=== PATIENT | female | born 1975 | race Caucasian/White ===

== ENCOUNTER → 2020-01-20 09:13 | Outpatient (BNVA) | payer OTHER, SELFPAY | PROVIDERS: PCP Family Medicine; Referring Provider Family Medicine; Visit Provider Physician Assistant | DX: Z76.89 Persons encountering health services in other specified circumstances (principal) ==

== ENCOUNTER 2020-02-08 14:38 | Outpatient (REF) | payer OTHER, SELFPAY ==
[2020-02-08 15:27] LABS: MANUAL DIFF FLAG NO
[2020-02-08 15:30] LABS: Basophils Percent Auto 0.3 % (0-2); Eosinophils Absolute Auto 0.2 X10*3/uL (0.0-0.4); Eosinophils Percent Auto 1.5 % (0-4); Hemoglobin 12.6 g/dl (12.0-16.0); Imm Gran Abs Auto 0.06 X10*3/uL (0.00-0.03); Imm Gran Pct Auto 0.4 % (0.0-0.4); Lymphocytes Absolute Auto 2.2 X10*3/uL (1.2-4.9); Lymphocytes Percent Auto 15.3 % (20-40); Mean Corpuscular HGB Conc 33.2 g/dl (31.0-35.0); Mean Corpuscular Hemoglobin 29.9 pg (27.0-33.0); Mean Corpuscular Volume 90.3 fL (80-98); Mean Platelet Volume 9.8 fL (9.4-12.3); Monocytes Absolute Auto 0.5 X10*3/uL (0.1-1.2); Monocytes Percent Auto 3.2 % (2-11); Neutrophils Absolute Auto 11.2 X10*3/uL (2.0-8.3); Neutrophils Percent Auto 79.3 % (45-73); Platelet Count 322 X10*3/uL (160-400); Red Blood Count 4.21 X10*6/uL (4.20-5.50); Red Cell Distribution Width 13.3 % (11.0-16.0); White Blood Count 14.1 X10*3/uL (4.8-10.8)
[2020-02-08 15:38] LABS: Estimated Average Glucose 103 mg/dL; Hemoglobin A1c % 5.2 %
[2020-02-08 16:01] LABS: C Reactive Protein 1.09 mg/dL (< or = 0.50); Cholesterol 194 mg/dL; HDL Cholesterol 52 mg/dL; LDL Cholesterol Calculated 127 mg/dl; Triglycerides 79 mg/dL
[2020-02-08 16:24] LABS: Ferritin 15 ng/mL (10-250); TSH reflex Free T4 0.53 mIU/mL (0.32-4.0); Vitamin D 25-OH Total 23.5 ng/mL (>30)
[2020-02-08 16:34] LABS: Folate 8.5 ng/mL (> or = 4.0); Vitamin B12 579 pg/mL (200-900)
[2020-02-10 20:32] LABS: Calcium (PTHI) 8.8 mg/dL (8.6-10.2); PTHI 48 pg/mL (14-64)
[2020-02-12 13:07] LABS: Vitamin B1 14 nmol/L (8-30)
[2020-02-14 13:42] LABS: Vitamin A 38 mcg/dL (38-98)
== END 2020-02-08 14:39 | disposition home or self-care (01) ==
LOC: HO.LAB 14:38
PROVIDERS: PCP Family Medicine; Visit Provider Physician Assistant
DX: E66.3 Overweight (principal)
CPT/HCPCS: 36415; 80061; 82306; 82607; 82728; 82746; 83036; 83519; 83970; 84425; 84443; 84590; 85025; 86140

== ENCOUNTER 2020-02-09 10:19 | Outpatient (REF) | payer OTHER, SELFPAY | END 2020-02-09 10:20 | disposition home or self-care (01) | LOC: HO.LAB 10:19 | PROVIDERS: PCP Family Medicine; Visit Provider Physician Assistant | DX: E66.3 Overweight (principal); Z68.31 Body mass index [BMI] 31.0-31.9, adult | CPT/HCPCS: 83525 ==

== ENCOUNTER → 2020-03-17 08:45 | Outpatient (BNVA) | payer OTHER, SELFPAY | PROVIDERS: PCP Internal Medicine; Referring Provider Internal Medicine; Visit Provider Physician Assistant | DX: Z76.89 Persons encountering health services in other specified circumstances (principal) ==

== ENCOUNTER → 2020-03-28 08:15 | Outpatient (BNVA) | payer OTHER, SELFPAY | PROVIDERS: PCP Internal Medicine; Visit Provider Dietitian, Registered | DX: Z76.89 Persons encountering health services in other specified circumstances (principal) ==

== ENCOUNTER 2024-12-29 12:21 | Outpatient (AMB) | payer OTHER, SELFPAY ==
--- OUTSIDE RECORDS SUMMARY | 2024-12-27 08:45 | XMS_ITS | Encounter Summary ---
Author Organization [facility] Address [facility] [employer] [facility] [address] [place] [phone] Phone Care Team Providers Care Paper Winder Name Role Phone Fili Henson MD Unavailable Monty Caceres MD Unavailable Chuck Bustos PA-C Unavailable [phone] Bety Gandara ETHNOLOGY PROFESSOR Unavailable Yesenia Chamorro MD Primary Care Provider [phone] Reason for Visit * Occupational Therapy (Within 2 weeks) - Authorized Specialty Diagnoses / Procedures Referred By Nathen lord Referred To Contact Occupational Therapy Diagnoses Cubital tunnel release Lilli Ramirez PA-C [address] [place] [address] [facility], [place] [address] Phone: tel: fax: [email or web address] [address] [address] Phone: tel: Referral ID Status Reason Start Date Expiration Date V isits Requested Visits Authorized [id number] Authorized 2024 2025 24 24 Encounter Details Date Type Department Care Team (Latest Contact Info) Description 12/27/2024 8:45 AM EDT Office Visit [facility] [address] [place] [address] [phone] Lilli Ramirez PA-C 4 [facility] [place] [place] [address] DavidJen avila, OT 4 [place] [address] [email or web address] Cubital tunnel syndrome on left (Primary Dx) Social History Tobacco Use Types Packs/Day Years Used Date Smoking Tobacco: Never Smokeless Tobacco: Never Alcohol Use Standard Drinks/Week Comments Never 0 (1 standard drink = 0.6 oz pur e alcohol) Child or Family Care Answer Date Record ed Do you have problems with on e of the following making it difficult for you to work, study, or receive health care? No 06/01/2021 Education Answer Date Recorded Are you interested in more education? Not on gina e 06/06/2023 Are you concerned about learning? Not on file 06/06/2023 No 06/06/2023 No 06/06/2023 Food Answer Date Recorded Within the past 6 months we worried whether our food would run out before we got money to buy more. Sometimes True 022 Within the past 6 months the food we bought just didn't last and we didn't have enough money to get more. Never True 05/15 Residential Stability Answer Date Recor ded What is your housing situation today? I have christian sing 06/01/2021 How many times have you move d in the past 12 months? Zero (I did not move) 06/01/2021 Paying for Meds Answer Date Recorded Do you have trouble paying for medicines? No 06/01/2021 Paying Utility Bills Answer Date Record ed Do you have trouble paying your heating or elect ricity bill? No 06/01/2021 Transportation Answer Date Recorded Has the lack of transportati on kept you from medical appointments or from getting medications? No 06/01/2021 Unemployment Answer Date Recorded Are you currently unemployed or working on a part-time or temporary basis, and looking for work? No 06/01/2021 Digital Access Answer Date Recorded No 09/09/2022 No 09/09/2022 Reliable internet access at home? Not on file 09/09/2022 Device with a working camera? Not on file Intimate Partner Violence Answer Date R ecorded Are you denied basic needs s uch as food, clothing, or medical care? No 12/08/2024 In the past 12 months have y ou been in a relationship with a person who hurts, threatens, or tries to control you? No 12/08/2024 Are you denied basic needs s uch as food, clothing, or medical care? No 12/08/2024 In the past 12 months have y ou been in a relationship with a person who hurts, threatens, or tries to control you? No 12/08/2024 Comments No Sex and Gender Information Value Date Recorded Sex Assigned at Female 01/02/2018 4:18 PM EDT Legal Sex Female 2:26 PM EDT Gender Identity Female 01/02/2018 4:18 PM EDT Sexual Orientation Straight 05/13/2020 3: 46 PM EST Occupation Industry Job Start Date Job End Date [employer] Not on file Not on file Not on file Hairstylist on the side Not on file Not on file Not on file documented as of this encounter Progress Notes * Jen Summers, JUAN RAMON - 12/27/2024 8:45 AM EDT Occupational Therapy Treatment Note Patient Name: Yaritza Banda Date of : 1975 This patient has attended 2 visits since the onset of Occupational Therapy. Referring MD: Lilli Ramirez PA-C [address] [place] [address] [facility], [facility] [place] [address] Subjective comments: No numbness/tingling- trying to use my arm more Pain comments pre-treatment: 0/10 before tx Pt reports resolved numbness/tingling Objective Measures: WNL digit and wrist AROM Diagnosis: Cubital tunnel syndrome on left [G56.22] Date of Surgery: 12/08/24 Precautions: no heavy strength tasks/ activity as tolerated Interventions: See encounter report for minutes associated with each intervention. Pt was 15 min late and accommodated. MHP to left hand and elbow x 10 min 8 min US to left cubital tunnel at 0.8 w/cm2 x 3 Mhz cont STM to scar and jt mob to elbow and wrist HEP practice:tendon glides x 10 each hook, fist, straight fist [place] x 10 elbow flex/ext x 10- added 1# shoulder retraction x 5 digit abd/add x 10 Added: isometric thumb adduction x 10 Added: wrist flex/ext x 10 with 1# weight; sup/pro x 10 with 1# weight uln n glides x 5 Issued gel pad and explained wear/care. Instructed to massage scar. (Eval- reviewed) Home Exercise Program: Reviewed and updates Assessment: Joi is a pleasant 49 y/o female referred to OT with left cubital tunnel release. Pt presents 2 week5 days post op. Pt is independent with HEP. Incision is closed with small reddened area on distal end of incision. Pt pleased with relief in numbness/tingling and improved AROM. Plan: Progress strength/functional use Jen Summers OT [id number] Jen Summers OT [id number] documented in this encounter Plan of Treatment Upcoming Encounters Date Type Department Care Team (Late st Contact Info) Description 01/04/2025 1:00 PM EDT Office Visit [facility] [address] [place] [address] [phone] Lilli Ramirez PA-C [address] [place] [address] [facility] [place] [address] Jen Summers OT [address] [place] [phone] [email or web address] 01/07/2025 2:00 PM EDT Office Visit [address] [phone] Lilli Ramirez PA-C [address] [place] [address] [facility] [place] [phone] Nevaeh Romano, PT 4 [place] [address] 01/12/2025 10:45 AM EDT Office Visit [address] [address] Lilli Ramirez PA-C [address] [place] [address], [place] [address] Jen Summers, OT 4 [place] [address] [email or web address] 01/12/2025 11:45 AM EDT Office Visit [address] [address] Lilli Ramirez PA-C [address] [place] [address], [place] [address] Nevaeh Romano, PT 4 [place] [address] 01/19/2025 10:00 AM EDT Office Visit [address] [address] Lilli Ramirez PA-C [address] [place] [address], [place] [address] Jen Summers, OT 4 [place] [address] [email or web address] 01/19/2025 11:00 AM EDT Office Visit [address] [address] Lilli Ramirez PA-C [address] [place] [address], [place] Nevaeh Romano, PT 4 [place] [address] 01/26/2025 10:00 AM EDT Office Visit [address] [address] Lilli Ramirez PA-C [address] [place] [address] [facility] [place] [address] Jen Summers, OT [address] [place] [address] [email or web address] 01/26/2025 11:00 AM EDT Office Visit [address] [address] Lilli Ramirez PA-C [address] [place] [address], [place] [address] Madonna Rodriguez PTA 4 [place] [address] 02/02/2025 10:00 AM EDT Office Visit [address] [address] Lilli Ramirez PA-C [address] [place] [address] [facility] [place], [place] [phone] Jen Summers OT 4 [place] [address] [email or web address] 02/02/2025 11:00 AM EDT Office Visit [address] [phone] Lilli Ramirez PA-C [address] [place] [address] [facility], [place] [address] Madonna Rodriguez, NURSES EDUCATOR [address] [place] [address] 02/09/2025 10:15 AM EDT Office Visit [address] [address] Lilli Ramirez PA-C [address] [place] [address], [place] [address] Nevaeh Romano, PT 4 [place] [address] 02/16/2025 10:15 AM EST Office Visit [address] [address] Lilli Ramirez PA-C [address] [place] [address], [place] [address] Madonna Rodriguez, NURSES EDUCATOR [address] [place] [address] 02/23/2025 10:15 AM EST Office Visit [address] [phone] Lilli Ramirez PA-C [address] [place] [address], [place], [place] [phone] Nevaeh Romano, PT 4 [place] [address] documented as of this encounter Visit Diagnoses Diagnosis Cubital tunnel syndrome on left- Primary documented in this encounter Additional Health Concerns Assessment Noted Time PHQ-2 Depression Total Score: 1 06/01/19 22 10:38 AM EST documented as of this encounter Care Teams Paper Winder Relationship Specialty Start Date End Date Yesenia Chaomrro MD 15 [facility] [address] [place] [address] PCP - General Family Medicine 08/18/20 Fili Henson MD 22 [facility], [address] [place] [address] Historical LMR Provider 02/02/17 Motny Caceres MD [address] [place] [address] 202 [place] [address] Historical LMR Provider 02/02/17 Chuck Bustos PA-C 4 [facility], [facility] [place] [address] Historical LMR Provider 02/02/17 Bety Gandara FNP [address] [place] [address] Historical LMR Provider 02/02/17 documented as of this encounter Additional Source Comments The information contained in this document represents components of the legal health record. It is not the complete legal health record.[facility]
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
--- OUTSIDE RECORDS SUMMARY | 2024-12-29 15:48 | XMS_ITS | Encounter Summary ---
Author Organization [facility] Address [facility] [address] [place] [address] Phone Care Team Providers Care Stained Glass Painter Name Role Phone Fili Henson MD Unavailable Monty Caceres MD Unavailable Chuck Bustos PA-C Unavailable Bety Gandara Unavailable Yesenia Chamorro MD Primary Care Provider [phone] Encounter Details Date Type Department Care Team (Late st Contact Info) Description 07/23/2023 Procedure Pass OR Admitting Dept - Virtual Department [address] [place] [phone] Social History Tobacco Use Types Packs/Day Years [...] your housing situation today? I have christian hines 06/01/2021 How many times have you move [...] as food, clothing, or medical care? No 06/25/2023 In the past 12 months have y ou been in a relationship with a person who hurts, threatens, or tries to control you? No 06/25/2023 Are you denied basic needs s uch as food, clothing, or medical care? No 06/25/2023 In the past 12 months have y ou been in a relationship with a person who hurts, threatens, or tries to control you? No 06/25/2023 Comments No Sex and Gender Information Value [...] on file documented as of this encounter Plan of Treatment Upcoming Encounters Date Type Department Care Team (Late st Contact Info) Description 01/04/2025 1:00 PM EDT Office Visit [address] [phone] Lilli Ramirez PA-C [address] [place] [address], [place] [address] Jen Summers, OT 4 [place] [address] [email or web address] 01/07/2025 2:00 PM EDT Office Visit [address] [phone] Lilli Ramirez PA-C [address] [place] [address], [place] [address] Nevaeh Romano, PT 4 [place] [address] 01/12/2025 10:45 AM EDT Office Visit [address] [phone] Lilli Ramirez PA-C [address] [place] [address], [place], [place] [phone] Jen Summers, OT [address] [place] [address] [email or web address] 01/12/2025 11:45 AM EDT Office Visit [address] [phone] Lilli Ramirez PA-C [address] [place] [address], [place], [place] [phone] Nevaeh Romano, PT 4 [place] [address] 01/19/2025 10:00 AM EDT Office Visit [address] [address] Lilli Ramirez PA-C [address] [place] [address] [facility], [place] [address] Jen Summers, OT 4 [place] [address] [email or web address] 01/19/2025 11:00 AM EDT Office Visit [address] [address] Lilli Ramirez PA-C [address] [place] [address], [place] [address] Nevaeh Romano, PT 4 [place] [address] 01/26/2025 10:00 AM EDT Office Visit [address] [address] Lilli Ramirez PA-C [address] [place] [address], [place] [address] Jen Summers, OT 4 [place] [address] [email or web address] 01/26/2025 11:00 AM EDT Office Visit [address] [address] Lilli Ramirez PA-C [address] [place] [address], [place] [address] [email or web address] Navvinnyilia Madonna Mcconnell, PEER SUPPORT SPECIALIST [address] [place] [address] 02/02/2025 10:00 AM EDT Office Visit [address] [address] Lilli Ramirez PA-C [address] [place] [address] [facility] [place] [address] Jen Summers OT [address] [place] [address] [email or web address] 02/02/2025 11:00 AM EDT Office Visit [address] [address] Lilli Ramirez PA-C [address] [place], [place] [address]s [facility] [place], [place] [phone] Navvinnyilia Madonna Jayesh, PEER SUPPORT SPECIALIST [address] [place] [address] 02/09/2025 10:15 AM EDT Office Visit [address] [phone] Lilli Ramirez PA-C [address] [place], [place] [address] [place], [place] [phone] Nevaeh Romano, PT 4 [place], [place] [phone] 02/16/2025 10:15 AM EST Office Visit [address] [phone] Lilli Ramirez PA-C [address] [place] [address] [facility] [place], [place] [phone] MerissailiaMadonna, PEER SUPPORT SPECIALIST 4 [place] [address] 02/23/2025 10:15 AM EST Office Visit [facility] [address] [place] [address] [phone] Lilli Ramirez PA-C [address] [place] [address] [facility], [place], [place] [phone] Nevaeh Romano, PT 4 [place], [place] [phone] documented as of this encounter Visit Diagnoses Not on filedocumented in this encounter Additional Health Concerns Assessment Noted Time PHQ-2 Depression Total Score: 1 06/01/19 10:38 AM EST documented as of this encounter Care Teams Stained Glass Painter Relationship Specialty Start Date End Date Yesenia Chamorro MD [address] [place] [address] [address]. [address] [place] [address] PCP - General Family Medicine 08/18/20 Fili Henson MD 22 [facility] 102 [place] [address] Historical LMR Provider 02/02/17 Monty Caceres MD [address] [place] [address] 202 [place] [address] Historical LMR Provider 02/02/17 Chuck Bustos PA-C [facility] [place] [address] [email or web address] Historical LMR Provider 02/02/17 Bety Gandara FNP 10 [place] [address] [email or web address] Historical LMR Provider 02/02/17 documented as of this encounter Additional Source Comments The information contained in this document represents components of the legal health record. It is not the complete legal health record.[facility]
--- OUTSIDE RECORDS SUMMARY | 2024-12-29 15:48 | XMS_ITS | Encounter Summary ---
Author Organization [facility] Address [facility] [address] [place] [phone] Phone Care Team Providers Care Parish Nurse Name Role Phone Fili Henson MD Unavailable Motny Caceres MD Unavailable Chuck Bustos PA-C Unavailable Bety Gandara Unavailable Yesenia Chamorro MD Primary Care Provider Encounter Details Date Type Department Care Team (Late st Contact Info) Description 08/27/2023 Procedure Pass OR Admitting Dept - Virtual Department [address] [place] [id number] Social History Tobacco Use Types Packs/Day Years [...] Description 01/04/2025 1:00 PM EDT Office Visit [address] [id number] Lilli Ramirez PA-C [address] [place] [address], [place] [address] Jen Summers, OT [address] [place] [address] [email or web address] 01/07/2025 2:00 PM EDT Office Visit [address] [id number] Lilli Ramirez PA-C [address] [place] [address], [place] [address] Nevaeh Romano, PT [address] [place] [address] 01/12/2025 10:45 AM EDT Office Visit [address] [phone] Lilli Ramirez PA-C [address] [place] [address], [place], [place] [phone] Jen Summers, OT [address] [place] [address] [email or web address] 01/12/2025 11:45 AM EDT Office Visit [address] [phone] Lilli Ramirez PA-C [address] [place] [address], [place], [place] [phone] Nevaeh Romano, PT [address] [place] [address] 01/19/2025 10:00 AM EDT Office Visit [address] [address] Lilli Ramirez PA-C [address] [place] [address] [facility], [place] [address] Jen Summers, OT [address] [place] [address] [email or web address] 01/19/2025 11:00 AM EDT Office Visit [address] [address] Lilli Ramirez PA-C [address] [place] [address], [place] [address] Nevaeh Romano, PT [address] [place] [address] 01/26/2025 10:00 AM EDT Office Visit [address] [address] Lilli Ramirez PA-C [address] [place] [address], [place] [address] Jen Summers, OT [address] [place] [address] [email or web address] 01/26/2025 11:00 AM EDT Office Visit [address] [address] Lilli Ramirez PA-C [address] [place] [address], [place] [address] Navvinnyilia Madonna Mcconnell, MECHANIC ASSISTANT [address] [place] [address] 02/02/2025 10:00 AM EDT Office Visit [address] [address] Lilli Ramirez PA-C [address] [place] [address] [facility] [place] [address] Jen Summers OT [address] [place] [address] [email or web address] 02/02/2025 11:00 AM EDT Office Visit [address] [address] Lilli Ramirez PA-C [address] [place], [place] [address] [facility] [place], [place] [phone] Navvinnyilia Madonna Jayesh, MECHANIC ASSISTANT [address] [place] [address] 02/09/2025 10:15 AM EDT Office Visit [address] [phone] Lilli Ramirez PA-C [address] [place], [place] [address] [place], [place] [phone] Nevaeh Romano, PT [address], [place] [phone] 02/16/2025 10:15 AM EST Office Visit [address] [phone] Lilli Ramirez PA-C [address] [place] [address] [facility] [place] [place] [phone] MerissailiaMadonna, MECHANIC ASSISTANT [address] [place] [address] 02/23/2025 10:15 AM EST Office Visit [facility] [address] [place] [address] [phone] Lilli Ramirez PA-C [address] [place] [address] [facility], [place], [place] [phone] Nevaeh Romano, PT [address] [place], [place] [phone] documented as of this encounter Visit Diagnoses Not on filedocumented in this encounter Additional Health Concerns Assessment Noted Time PHQ-2 Depression Total Score: 1 06/01/19 10:38 AM EST documented as of this encounter Care Teams Parish Nurse Relationship Specialty Start Date End Date Yesenia Chamorro MD [address] [place] [address] [address] [place] [address] PCP - General Family Medicine 08/18/20 Fili Henson MD 22 [facility] [address] [place] [address] Historical LMR Provider 02/02/17 Monty Caceres MD [address] [place] [address] [address] [place] [address] Historical LMR Provider 02/02/17 Chuck Bustos PA-C [facility] [place] [address] [email or web address] Historical LMR Provider 02/02/17 Bety Gandara FNP [address] [place] [address] [email or web address] Historical LMR Provider 02/02/17 documented as of this encounter Additional Source Comments The information contained in this document represents components of the legal health record. It is not the complete legal health record.[facility]
--- OUTSIDE RECORDS SUMMARY | 2024-12-29 15:48 | XMS_ITS | Clinical Summary ---
Author Organization Located Within [facility] Address [facility] [employer] [facility] [address] [place] [phone] Phone Care Team Providers Care Home Office Representative Name Role Phone Fili Henson MD Unavailable Monty Caceres MD Unavailable Chuck Bustos PA-C Unavailable Bety Gandara [employer] Unavailable [phone] Yesenia Chamorro MD Primary Care Provider Allergies Active Allergy Reactions Criticality Noted Date Comments Rizatriptan Hives,Itching 06/27/2019 Guaifenesin Itching 05/19/2018 Penicillins Other (See Comments) 10/05/2016 Childhood allergy Childhood reaction Pseudoephedrine Hcl Hives,Other (See Comments) 03/03/2017 hallucinations And hallucinations Sulfa (Sulfonamide Antibiotics) Hives 03/17/2017 Sumatriptan Rash Low 03/03/2017 Taste disturbances Medications butalbital-acetami nophen-caffeine (FIORICET, ESGIC) 50-325-40 mg per tablet 03/22/20 17 Active clonazePAM (KLONOPIN) 1 MG tablet Take 1 mg by mouth nightly at bedtime as needed. 03/22/20 17 Active vilazodone (VIIBRYD) 40 mg Tab Take 40 mg by mouth daily. 02/21/20 17 Active ALPRAZolam (XANAX) 1 MG tablet Take 1 mg by mouth 2 (two) times a day as needed for anxiety. Also during prn Active dextroamphetamine- amphetamine (ADDERALL) 10 mg Tab tablet Take 30 mg by mouth daily. 01/02/20 21 Active ondansetron (ZOFRAN-ODT) 4 MG disintegrating tablet Take 1 tablet (4 mg total) by mouth every 8 (eight) hours as needed. 20 tablet 07/24/19 23 Active TYRVAYA 0.03 mg/spray sprm 07/03/19 23 Active buPROPion (WELLBUTRIN XL) 300 MG ER 24 hr tablet Take 300 mg by mouth daily. Active zolpidem (AMBIEN CR) 12.5 MG CR tablet Take 12.5 mg by mouth. Active lamoTRIgine (LAMICTAL) 25 MG IMMEDIATE release tablet 03/17/20 24 Active buPROPion (WELLBUTRIN XL) 150 MG ER 24 hr tablet 01/29/20 24 Active oxyCODONE 5 MG immediate release tablet Take 1-2 tablets (5-10 mg total) by mouth every 6 (six) hours as needed for pain (specific location in comments). Partial fill ok 10 tablet 12/09/19 25 025 Discontinu ed(No longer taking) fluconazole (DIFLUCAN) 150 MG tabletIndications: Acute vaginitis Take 1 tablet (150 mg total) by mouth once for 1 dose. Take second dose in 72 hours if symptoms persist. 2 tablet 12/15/19 25 025 Active Problems Problem Noted Date Diagnosed Date Left carpal tunnel syndrome 07/23/2023 De Quervain's tenosynovitis, left 07/23/2023 Right carpal tunnel syndrome 03/12/2023 Assessment & Plan (03/13/2023 10:45 AM EST): Positive Phalen's test, flick sign, and numbness/tingling of hand are c/w CTS. Use of cock-up splint either at work or during sleep (but not all day, to avoid muscle atrophy) is appropriate but pt reports no longer helpful so may be time to move on from using this. Finger deformity, right 03/12/2023 Assessment & Plan (03/13/2023 10:56 AM EST): Appears c/w OA and probably present for longer than pt has been aware but will check XR to r/o other pathology. Trigger ring finger of right hand 03/12/2023 Assessment & Plan (03/13/2023 11:00 AM EST): H&P c/w trigger finger. Discussed what this is, how it occurs and how it is treated. Pt amenable to injection today; if sx recur, can return for repeat injection or call for surgical referral. Risks, benefits and alternatives to trigger finger injection discussed with patient. Consent form signed and scanned into chart. Pt provided verbal consent for this procedure to be performed by student Diana Zuluaga. The skin was cleaned with Hibiclens and cooled with ethyl chloride spray. The right palm at the site of the tender nodule was injected with a mix of 0.25 cc 1% plain lidocaine and 10 mg kenalog (40 mg/mL). Patient tolerated the injection well. Left wrist pain 03/12/2023 Assessment & Plan (03/13/2023 10:55 AM EST): Pain, tenderness and swelling of L radial wrist and h/o repetitive supinating movements strongly suggestive of de Quervain's disease although not definitive given negative Erica's test. Pt aware of diagnostic uncertainty and opted to proceed with steroid injection anyway; OT will also be helpful. Risks, benefits and alternatives to wrist injection discussed with patient. Consent form signed and scanned into chart. The skin was cleaned with Hibiclens and cooled with ethyl chloride spray. The left radial wrist was injected superficially with a mix of 3 cc 1% plain lidocaine and 10 mg kenalog (40 mg/mL). Patient tolerated the injection well and may return as needed for repeat injection. Mastodynia 06/01/2021 Overweight 06/01/2021 Recurrent UTI 06/01/2021 Routine medical exam 06/01/2021 Assessment & Plan (06/01/2021 3:02 PM EST): 45 y.o. female here for complete physical exam. Mastalgia is not cyclic and she does not take any hormonal medications that might be held responsible. She has had normal breast imaging, including mammography and ultrasound, since the onset of her breast pain. She has not had any recent weight changes but admits that it has been a long time since she was properly fitted for a bra. We reviewed evidence that shows that up to 85% of patients with breast pain find relief from getting bras properly fitted and I recommend that she do so. We discussed additional treatment options for pain including vitamin E, evening primrose oil, diclofenac; she is interested in whenever would be most effective and I think the latter is probably her best bet. She will let me know if this is not effective. The remainder of her chronic medical conditions are stable and/or managed by other specialists. USPSTF A&B recommendations reviewed with pt. BP: WNL BMI: Body mass index is 29.26 kg/m ., recommend icnreasing fruits/veg consumption Pap smears for people age 21-65 with a cervix: s/p hysterectomy STI testing for teens and adults at risk, and at least one lifetime HIV and hep C test: Done previously and normal/negative per pt PrEP for persons at high risk of HIV: N/A plans in the next year: N/A no risk for Depression screen: in treatment IPV screen in women of reproductive age (or others PRN): Negative Smoking cessation counseling: N/A Alcohol use counseling: N/A LTBI screening in people at increased risk: Done previously and normal/negative BrCa screening in women/AFAB people at risk: 7-Question Family History Screening Tool and Any woman in the family with breast cancer before age 50 - discussed, will consider and let me know if she wants to get tested Vaccinations: TDaP today Last dental visit: up to date Lipid screening to consider statin for primary prevention for adults 40-75, or at younger ages with risk factors: WNL 2019, repeat @ 5 years This SmartLink has been updated to reference the ASCVD 2013 equation and not the 2018 equations. The 10-year ASCVD risk score (Justinanalisa YOUNG Jr., et al., 2013) is: 0.5% Values used to calculate the score: Age: 45 years Sex: Female Is Non- : No Diabetic: No Tobacco smoker: No Systolic Blood Pressure: 98 mmHg Is BP treated: No HDL Cholesterol: 37 mg/dL Total Cholesterol: 148 mg/dL Breast cancer risk reducing medication in people with breasts 35 and older at risk: N/A Glucose/diabetes screening for people 35 - 70 with BMI >25: nonfasting glucose WNL 2019 Breast cancer screening with biennial mammography for people with breasts 50 and older, and can consider for 40-49: WNL last fall Back pain, lumbosacral 03/26/2018 Assessment & Plan (03/26/2018 5:39 PM EST): Presenting with lumbosacral back pain with radiation into right gluteal muscles x 3 weeks. Worse with twisting. No incontinence, weakness, numbness or parasthesia. No saddle anesthesia. On exam pt has ttp over right QL and right SI joint and acute paraspinal muscle spasm of lumbar spine. 1. Will start with NSAIDs and muscle relaxants x 1-2 weeks. Discussed SE of medications. 2. Epsom salt baths PRN 3. F/u in 2 weeks for re-check - if not improved will schedule for possible OMT Pt understood. All questions and concerns were addressed. Allergic rhinitis due to pollen 12/29/2017 Chronic depression 12/29/2017 Assessment & Plan (10/07/2018 6:52 PM EDT): Continue psychiatric medications as prescribed. None of these medications are new. Chronic insomnia 12/29/2017 Chronic neck pain 12/29/2017 Eczema 12/29/2017 Migraine with aura and witho ut status migrainosus, not intractable 12/29/2017 Assessment & Plan (10/07/2018 7:20 PM EDT): Triptan can be ordered as needed, sumatriptan is on formulary here. Butalbital can also be ordered as needed. Currently minimal headache. She last had classic migraine 2 days ago. Attention deficit hyperactivity disorder (ADHD) Overview (06/01/2021): f/b associate professor of psychology Eliz. Delgadillo for her various concerns and Rx's Resolved Problems Problem Noted Date Diagnosed Date Resolved Date TIA (transient ischemic attack) 10/07/2018 06/01/2021 Assessment & Plan (10/07/2018 6:58 PM EDT): I suspect this represents complex migraine, with possible contribution from anesthesia. Currently no focal findings on neurologic exam. Head CT is unremarkable. Metabolic work-up is unremarkable, leukocytosis is likely reactive postoperatively and I do not see other evidence for infection. She remains afebrile and hemodynamically stable with some tachycardia, but appears slightly anxious. [facility] tel[place]urology consult appreciated. 1. Observation on telemetry 2. Neurologic checks every 4 hours 3. MRI of the brain, MRA of the brain and neck to be performed this evening to evaluate for ischemia or stenosis/thrombus 4. Further diagnostics based on MRI results 5. Check TSH, ESR, CRP, coags, lipids, and hemoglobin A1c 6. Patient has passed bedside swallow eval and will be allowed to have a regular diet Localized adiposity 06/10/2018 06/01/19 Assessment & Plan (10/07/2018 6:52 PM EDT): Per Dr. Caceres's recommendations: -Leave compression garments on for 48 hours. -use sequential compression devices on lower legs while in bed, avoid chemical anticoagulants. -Up out of bed, ambulate TID. -Oral percocet 1-2 q 4 hours for pain. OK to add ibuprofen after 48 hours. -serosanguinous drainage from the liposuctioned areas is normal and can be voluminous. Use chucks on bed. OK to change ABD pads. Blepharochalasis of upper an d lower eyelids of both eyes 06/10/2018 06/01/2021 Assessment & Plan (10/07/2018 6:51 PM EDT): Per Dr. Caceres's recommendations: -Keep iced saline gauze on eyes as much as possible, with head slightly elevated. Keep a bowl of ice at the bedside with a bottle of saline in it. Wet an ABD pad with the ice cold saline from the bottle and place over eyes. Patient can do this herself if needed. -Tobradex eye drops, one drop each eye TID for one week post op. Exercise-induced asthma 12/29/201705/15 Overview (06/01/2021): Resolved Hyperlipidemia 12/29/2017 06/01/2021 Encounters Date Type Department Care Team Description 12/27/2024 8:45 AM EDT Office Visit [facility] [address] [place] [phone] Lilli Ramirez PA-C Chutkowski, Idalina, OT Cubital tunnel syndrome on left (Primary Dx) 12/20/2024 8:00 AM EDT Office Visit [facility] [address] [place] [address] Lilli Ramirez PA-C Chutkowski, Idalina, OT Cubital tunnel syndrome on left (Primary Dx) 12/17/2024 11:20 AM EDT Office Visit [facility] [address] [place] [address] Lilli Ramirez PA-C S/P cubital tunnel release (Primary Dx) 12/14/2024 4:20 PM EDT Telemedicine [facility] [address] [place] [address] [place] [phone] Jeff Sandra MD Acute vaginitis (Primary Dx) 2024 8:20 AM EDT Office Visit [facility] [address] [place] [address] Lilli Ramirez PA-C S/P cubital tunnel release (Primary Dx) 12/08/2024 9:16 AM EDT - 12/08/2024 10:17 AM EDT Surgery OR Admitting Dept - Virtual Department [address] [place] [address] Sara Herndon MD LEFT RELEASE CUBITAL TUNNEL 12/08/2024 9:04 AM EDT Anesthesia Event OR Admitting Dept - Virtual Department [address] [place] [phone] Josemanuel Vega MD 12/08/2024 7:31 AM EDT - 12/08/2024 4:41 PM EDT Hospital Encounter OR Admitting Dept - Virtual Department [address] [place] [address] Sara Herndon MD Discharge Disposition: Home or Self Care 12/08/2024 Procedure Pass [facility] Scan - [facility] [address] [place] [phone] 12/08/2024 Procedure Pass OR Admitting Dept - Virtual Department [address] [place] [address] 12/07/2024 8:30 AM EDT Pre-Admission Testing Pre Procedure Evaluation [address] [place] [address] Sara Herndon MD 12/07/2024 Prep for Surgery [facility] [address] [place] [address] [phone] Sara Herndon MD 12/06/2024 11:00 AM EDT Office Visit [facility] [address] [place] [phone] Lilli Ramirez PA-C Chutkowski, Idalina, OT Cubital tunnel syndrome on left (Primary Dx) 12/02/2024 8:45 AM EDT Office Visit [facility] [address] [place] [phone] Sara Herndon MD Cubital tunnel syndrome on left (Primary Dx) 11/29/2024 9:00 AM EDT Office Visit [facility] [address] [place] [phone] Lilli Ramirez PA-C Losty, Nikki, OT Cubital tunnel syndrome on left (Primary Dx) 11/15/2024 9:30 AM EDT Office Visit [facility] [address] [place] [address] Lilli Ramirez PA-C Chutkowski, Idalina, OT Cubital tunnel syndrome on left (Primary Dx) 11/15/2024 Orders Only [facility] [address] [place] [phone] iLlli Ramirez PA-C 11/09/2024 12:30 PM EDT Procedure visit [facility] [address] [place] [address] Milagros Amador MD Cubital tunnel syndrome on left (Primary Dx) 11/08/2024 10:15 AM EDT Office Visit [facility] [address] [place] [address] 16774 Lilli Ramirez PA-C Chutkowski, Idalina, OT Cubital tunnel syndrome on left (Primary Dx) 10/28/2024 8:45 AM EDT Office Visit [facility] [address] [place] [address] Lilli Ramirez PA-C Chutkowski, Idalina, OT Cubital tunnel syndrome on left (Primary Dx) 10/22/2024 11:00 AM EDT Office Visit [address] [address] Lilli Ramirez PA-C Chutkowski, Idalina, OT Cubital tunnel syndrome on left (Primary Dx) 10/08/2024 Orders Only [facility] [address] [place] [address] Lilli Ramirez PA-C from Last 3 Months Immunizations Immunization Administration Dates Next Due COVID-19 (Pre-02/03) Pfizer Vaccine, mRNA, PF 01/24/2021,04/25/2020,04/04/2020 Hepatitis B Adult 12/16/2019,,12/16/2019,2019 Influenza Quadrivalent Prese rvative Free IM 02/04/2023,01/17/2022,01/11/2021,2019,12/16/2019,12/16/2019,12/16/2019 Influenza trivalent preserva tive free intradermal 02/01/2013 Influenza, Unspecified Formulation 05/11/2019 Td (adult) 5 Lf Tetanus Toxo id, PF, Adsorbed 08/21/2009 Tdap 06/01/2021 Family History Medical History Relation Comments No Known Problems Brother 1 No Known Problems Brother 2 Stroke Maternal Aunt Colon cancer Maternal Uncle in his 60s Coronary artery disease Mother KS 2017 Breast cancer Paternal Aunt <50 Breast cancer Unspecified MGGM Diabetes Unspecified both sides Relation Status Comments Brother 1 Alive Brother 2 Alive Maternal Aunt Alive Maternal Uncle Mother Alive Paternal Aunt Unspecified Social History Tobacco Use Types Packs/Day Years Used Date Smoking Tobacco: Never Smokeless Tobacco: Never Tobacco Cessation:Counseling Given: Not Answered Alcohol Use Standard Drinks/Week Comments Never 0 [...] file Not on file Not on file Last Filed Vital Signs Vital Sign Reading Time Taken Comments Blood Pressure 121/82 12/08/2024 4:19 PM EDT Pulse 90 12/08/2024 1:00 PM EDT Temperature 36.4 C (97.5 F) 12/08/2024 4:19 PM EDT Respiratory Rate 10 12/08/2024 1:00 PM EDT Oxygen Saturation 96% 12/08/2024 4:19 PM EDT Inhaled Oxygen Concentration - - Weight 69.9 kg (154 lb) 12/03/2024 10:56 AM EDT Height 162.6 cm (5' 4 ) 12/03/2024 10:56 AM EDT Body Mass Index 26.43 12/03/2024 10:56 AM EDT Plan of Treatment Upcoming Encounters Date Type Department Care Team (Late st Contact Info) Description 01/04/2025 1:00 PM EDT Office Visit [facility] [address] [place] [address] [phone] Lilli Ramirez PA-C [address] [place] [address] [facility] [place], [place] [phone] Jen Summers OT [address] [place], [place] [phone] [email or web address] 01/07/2025 2:00 PM EDT Office Visit [address] [phone] Lilli Ramirez PA-C [address] [place] [address] Sports [facility], [place] [address] Nevaeh Romano, PT [address] [place] [address] 01/12/2025 10:45 AM EDT Office Visit [address] [address] Lilli Ramirez PA-C [address] [place] [address], [place] [address] Jen Summers OT [address] [place] [address] [email or web address] 01/12/2025 11:45 AM EDT Office Visit [address] [phone] Lilli Ramirez PA-C [address] [place] [address], [place] [address] Nevaeh Romano, PT [address] [place] [address] 01/19/2025 10:00 AM EDT Office Visit [address] [address] Lilli Ramirez PA-C [address] [place] [address], [place] [address] Jen Summers, OT [address] [place] [address] [email or web address] 01/19/2025 11:00 AM EDT Office Visit [address] [address] Lilli Ramirez PA-C [address] [place], [place] [address]s Sports [facility], [place] [address] Nevaeh Romano, PT [address] [place] [address] 01/26/2025 10:00 AM EDT Office Visit [address] [phone] Lilli Ramirez PA-C [address] [place] [address] Sports [facility], [place] [address] Jen Summers, OT [address] [place] [address] [email or web address] 01/26/2025 11:00 AM EDT Office Visit [address] [address] Lilli Ramirez PA-C [address] [place] [address], [place] [address] Madonna Rodriguez PTA [address] [place] [address] 02/02/2025 10:00 AM EDT Office Visit [address] [phone] Lilli Ramirez PA-C [address] [place] [address], [place] [address] Jen Summers OT [address] [place] [address] [email or web address] 02/02/2025 11:00 AM EDT Office Visit [address] [address] Lilli Ramirez PA-C [address] [place] [address], [place] [address] Madonna Rodriguez PTA [address] [place] [address] 02/09/2025 10:15 AM EDT Office Visit [address] [address] Lilli Ramirez PA-C [address] [place] [address], [place] [address] Nevaeh Romano, PT [address] [place] [address] 02/16/2025 10:15 AM EST Office Visit [address] [address] Lilli Ramirez PA-C [address] [place] [address], [place], [place] [phone] Madonna Rodriguez PTA [address] [place] [address] 02/23/2025 10:15 AM EST Office Visit [address] [address] Lilli Ramirez PA-C 4 [facility], [facility] [place] [address] [email or web address] Nevaeh Romano, PT [address] [place] [address] [email or web address] Health Maintenance Due Date Last Done Comments HEPATITIS C SCREENING 1994 HIV ONE-TIME SCREENING (18-65 YEARS) 1994 COLOGUARD 2021 COLONOSCOPY 2021 COLORECTAL CANCER SCREENING 2021 FIT TEST 2021 FOBT 2021 SIGMOIDOSCOPY 2021 VIRTUAL COLONOSCOPY 2021 DEPRESSION SCREENING 06/01/2022 06/01/2021 MAMMOGRAM 02/01/2023 02/01/2021, 03/23/2018 LIPID PANEL 10/09/2023 10/08/2018 INFLUENZA VACCINE (#1) 2024 , 01/17/2022, 01/11/2021, Additional history exists COVID-19 VACCINE (2024- season) 2024 01/24/2021, 04/25/2020, 04/04/2020 SCREENING FOR DIABETES 12/09/2027 12/08/2024 Adult Td,Tdap Booster 06/01/2031 06/01/2021, 010 SMOKING STATUS SCREENING (Once After 26 Yrs) Completed 12/08/2024 HEPATITIS A VACCINES Aged Out No long er eligible based on patient's age to complete this topic HIB VACCINES Aged Out No longer eligi ble based on patient's age to complete this topic MENINGOCOCCAL VACCINES (ACWY) Aged Out No longer eligible based on patient's age to complete this topic MENINGOCOCCAL VACCINES (B) Aged Out N o longer eligible based on patient's age to complete this topic PNEUMOCOCCAL VACCINES (0-49 years) Aged Out No longer eligible based on patient's age to complete this topic Medical Devices Not on file Procedures Procedure Name Priority Date/Time Associated Diagnosis Comments CT HEAD (CODE STROKE) WITHOUT CONTRAST Routine 12/08/2024 11:07 AM EDT POCT GLUCOSE Routine 12/08/2024 10:49 AM EDT AIRWAY PLACEMENT Routine 12/08/2024 9:10 AM EDT ME REVISE ULNAR NERVE AT ELBOW 12/08/2024 9:03 AM EDT Cubital tunnel syndrome on left BI MAMMOGRAM DIAGNOSTIC WITH TOMOSYNTHESIS WITH CAD (BILATERAL) Routine 02/01/2021 1:07 PM EDT Breast pain, left LIPID PANEL Routine 10/08/2018 4:07 AM EDT from Last 3 Months or Most Recently Relevant to Health Maintenance Results * CT HEAD (CODE STROKE) WITHOUT CONTRAST (12/08/2024 11:07 AM EDT) MGB IMG BUILDING EQUIPMENT OPERATOR COMMENT no infarct [facility] Anatomical Region Laterality Modality Head Computed Tomogra phy 12/08/2024 11:0 7 AM EDT Impressions 12/08/2024 11:24 AM EDT No acute infarct or intracranial hemorrhage. A clinically significant result was initiated on 12/08/2024 11:24 AM, Message ID [id number]. Narrative 12/08/2024 11:[address] HEAD (CODE STROKE) WITHOUT CONTRAST Referring clinician's provided indication for this examination in Epic: * Neuro deficit, acute, stroke suspected TECHNIQUE: Multidetector-row CT of the head was performed without intravenous contrast using tailored dose modulation techniques. Images were reconstructed in the axial, coronal, and sagittal planes. COMPARISON: CT HEAD WITHOUT CONTRAST FINDINGS: Brain Parenchyma: There is no mass-effect, midline shift, or space-occupying lesion. There is no acute territorial infarct or intracranial hemorrhage. Ventricular System and Extra-Axial Spaces: The ventricles, sulci and cisterns are age-appropriate. There is no extra-axial fluid collection. Osseous and Extracranial Structures: There is no displaced calvarial fracture. The visualized paranasal sinuses are clear. The mastoid air cells are clear. The orbits and soft tissues are unremarkable. Procedure Note Francois Sawyer MD - 12/08/2024 CT HEAD (CODE STROKE) WITHOUT CONTRAST Referring clinician's provided indication for this examination in Epic: *Neuro deficit, acute, stroke suspected TECHNIQUE: Multidetector-row CT of the head was performed withoutintravenous contrast using tailored dose modulation techniques. Imageswere reconstructed in the axial, coronal, and sagittal planes. COMPARISON: CT HEAD WITHOUT CONTRAST FINDINGS: Brain Parenchyma: There is no mass-effect, midline shift, orspace-occupying lesion. There is no acute territorial infarct orintracranial hemorrhage. Ventricular System and Extra-Axial Spaces: The ventricles, sulci andcisterns are age-appropriate. There is no extra-axial fluid collection. Osseous and Extracranial Structures: There is no displaced calvarialfracture. The visualized paranasal sinuses are clear. The mastoid aircells are clear. The orbits and soft tissues are unremarkable. IMPRESSION: No acute infarct or intracranial hemorrhage. A clinically significant result was initiated on 12/08/2024 11:24 AM,Message ID [id number]. us Josemanuel Vega MD IM CT HEAD/NECK Final Resul t * POCT Glucose (12/08/2024 10:49 AM EDT) Glucose, POCT 92 70 - 100 mg/dL [facility] 12/08/2024 10:4 9 AM EDT 12/08/2024 10:52 AM EDT us Sara Herndon MD POINT OF CARE TEST ORDERABLES Final Result [facility] [address] [place] [address] * ANES ETT DOUBLE LUMEN - AIRWAY LDA (12/08/2024 9:10 AM EDT) Narrative Miguel Gomez CRNA - 12/08/2024 9:10 AM EDT Miguel Gomez CRNA 12/08/2024 9:15 AM Airway Placement Procedure Note: Procedure performed by: fellow/resident/INSTRUCTIONAL COACH Anesthesiologist: Josemanuel Vega MD Fellow/Resident/INSTRUCTIONAL COACH: Miguel Gomez CRNA Airway procedure initiated at:12/08/2024 9:10 AM and ended at. Personal Protective Equipment: Mask: surgical mask Gloves: gloves Mask Ventilation: Quality: not attempted Airway Placement: Technique: LMA LMA Insertion: LMA size: 3 LMA type: flexible LMA placement attempts: 1. Outcomes: Evidence of dental injury? no Complications observed? no Miguel Gomez CRNA ME ANESTHESIA Final Resu lt * BI MAMMOGRAM DIAGNOSTIC WITH TOMOSYNTHESIS WITH CAD (BILATERAL) (02/01/2021 1:07 PM EDT) Anatomical Region Laterality Modality Breast Left, Breast Right, Breast Bilateral Bila teral Mammography 02/01/2021 1:01 PM EDT Impressions 02/01/2021 1:56 PM EDT RIGHT BREAST: Negative, no evidence of malignancy. Normal interval follow-up is recommended in 12 months. LEFT BREAST: Negative, no evidence of malignancy. In particular, no mammographic or sonographic abnormality to accounts for patient's palpable concern. Clinical follow-up is recommended. Note that palpable concerns should be evaluated independent of imaging findings. Normal interval follow-up mammogram is recommended in 12 months. Bi-RADS: BI-RADS CATEGORY: 1 - Negative. DENSITY: The breast tissue is heterogeneously dense, which could obscure a lesion on mammography. RIGHT RECOMMENDATION DUE DATE: 12 Months Recommendation: Right Mammography Screening LEFT RECOMMENDATION DUE DATE: At This Time Recommendation: Left Clinical Follow Up Narrative 02/01/2021 1:56 PM EDT History: According to patient, left lump in the lateral breast, approximately 3 o'clock position. STUDIES: 1.Bilateral diagnostic mammography with tomosynthesis and CAD 2.Targeted ultrasound of the left breast TECHNIQUE: Bilateral full-field digital diagnostic mammography is obtained and read in conjunction with computer-aided detection. Tomosynthesis as well as 2-D C view imaging were obtained. COMPARISON: Comparison made to March 23, 2018 BREAST COMPOSITION: The breast tissue is heterogeneously dense, which may obscure small masses. RIGHT BREAST: No significant masses, suspicious calcifications or other abnormalities are seen. LEFT BREAST: No significant masses, suspicious calcifications or other abnormalities are seen. In particular, no discrete masses in the vicinity of the triangular skin marker placed at approximately 3 o'clock position at 1.0 cm from the nipple. Targeted ultrasound of the left breast was performed at location of the palpable concern at 3:00-4:00 positions at 1 cm from the nipple. No sonographic abnormality seen. Only normal breast tissue seen. Targeted ultrasound left breast was also performed at approximately 11 o'clock position 5 cm from the nipple erroneously, which also only showed normal breast tissue. us Bety Gandara [employer] ROBOTICIST IMG MG EXAMS Final Result * Lipid panel (10/08/2018 4:07 AM EDT) HDL 37 mg/dL [facility] Comment: Interpretation <40 mg/dL: Low HDL cholesterol (major risk factor for CHD) Greater than or equal to 60 mg/dL: High HDL cholesterol ( negative risk factor for CHD) HDL - cholesterol is affected by a number of factors, e.g. smoking, excerise, hormones, sex and age. CHOLESTEROL 148 0 - 240 mg/dL [facility] TRIGLYCERIDES 115 30 - 160 mg/dL [facility] LDL 88 50 - 129 mg/dL [facility] Comment: LDL levels in terms of risk for coronary heart disease: <100 mg/dL: Optimal 100-129 mg/dL: Near or above optimal 130-159 mg/dL: Borderline high 160-189 mg/dL: High >190 mg/dL: Very High CARDIAC RISK RATIO 4.0 3.3 - 4.4 C [facility] Blood 10/08/2018 4:07 AM EDT 10/08/2018 5:52 AM EDT us Rosas Benton MD LAB BLOOD ORDERABLES Fin al Result [address] [address] from Last 3 Months or Most Recently Relevant to Health Maintenance Insurance [facility] [place] [address] [address] [place] [address] [place] [address] [facility] Advance Directives For more information, please contact: [phone] (9AM - 5PM [facility], Friday-Friday) * Full Code (Presumed) (Latest Code Status on File) Date Activated Date Inactivated Comments 10/07/2018 7:52 PM 10/08/2018 2:41 PM * Full Code (Presumed) Date Activated Date Inactivated Comments 10/07/2018 6:14 AM 10/07/2018 5:44 PM Care Teams Home Office Representative Relationship Specialty Start Date End Date Yesenia Chamorro MD [address] [facility] [address] [place] [address] [email or web address] PCP - General Family Medicine 08/18/20 Fili Henson MD [address], [address] [place] [address] [email or web address] Historical LMR Provider 02/02/17 Monty Caceres MD [address] [place] [address], [address] [place] [address] [email or web address] Historical LMR Provider 02/02/17 Chuck Bustos PA-C [address] [place] [address] [facility], [facility] [place] [address] [email or web address] Historical LMR Provider 02/02/17 Bety Gandara FNP [address] [place] [address] [email or web address] Historical LMR Provider 02/02/17 Additional Source Comments The information contained in this document represents components of the legal health record. It is not the complete legal health record.Located Within [facility]
--- OUTSIDE RECORDS SUMMARY | 2024-12-29 15:50 | XMS_ITS | Encounter Summary ---
Author Organization [facility] Address [facility] [address] [place] [address] Phone Care Team Providers Care Beveler Name Role Phone Fili Henson MD Unavailable Monty Caceres MD Unavailable Chuck Bustos PA-C Unavailable [phone] Bety Gandara Unavailable Yesenia Chamorro MD Primary Care Provider [phone] Encounter Details Date Type Department Care Team (Late st Contact Info) Description 12/08/2024 Procedure Pass OR Admitting Dept - Virtual Department [address] [place] [id number] Social History Tobacco Use Types Packs/Day Years [...] Description 01/04/2025 1:00 PM EDT Office Visit [address] [id number] Lilli Ramirez PA-C [address] [place] [address], [place] [address] Jen Summers, OT [address] [place] [address] [email or web address] 01/07/2025 2:00 PM EDT Office Visit [address] [id number] Lilli Ramirez PA-C [address] [place] [address], [place] [address] Nevaeh Romano, PT 4 [place] [address] 01/12/2025 10:45 AM EDT Office Visit [address] [id number] Lilli Ramriez PA-C [address] [place] [address], [place], [place] [phone] Jen Summers, OT [address] [place] [address] [email or web address] 01/12/2025 11:45 AM EDT Office Visit [address] [id number] Lilli Ramirez PA-C [address] [place] [address], [place], [place] [phone] Nevaeh Romano, PT 4 [place] [address] 01/19/2025 10:00 AM EDT Office Visit [address] [address] Lilli Ramirez PA-C [address] [place] [address] Sports [facility], [place] [address] Jen Summres, OT 4 [place] [address] [email or web address] 01/19/2025 11:00 AM EDT Office Visit [address] [address] Lilli Ramirez PA-C [address] [place] [address], [place] [address] Nevaeh Romano, PT 4 [place] [address] 01/26/2025 10:00 AM EDT Office Visit [address] [address] Lilli Ramirez PA-C [address] [place] [address], [place] [address] Jen Summers, OT [address] [place] [address] [email or web address] 01/26/2025 11:00 AM EDT Office Visit [address] [address] Lilli Ramirez PA-C [address] [place] [address], [place] [address] Navvinnyilia Madonna Mcconnell, EXPERIMENTAL TECHNICIAN [address] [place] [address] 02/02/2025 10:00 AM EDT Office Visit [address] [address] Lilli Ramirez PA-C [address] [place] [address] [facility] [address] Jen Summers OT [address] [place] [address] [email or web address] 02/02/2025 11:00 AM EDT Office Visit [address] [address] Lilli Ramirez PA-C [address] [place], [place] [address]s [facility] [place], [place] [phone] Navvinnyilia Madonna Jayesh, EXPERIMENTAL TECHNICIAN [address] [place] [address] 02/09/2025 10:15 AM EDT Office Visit [address] [id number] Lilli Ramirez PA-C [address] [place], [place] [address] [place], [place] [phone] Nevaeh Romano, PT [address] [place], [place] [phone] 02/16/2025 10:15 AM EST Office Visit [address] [phone] Lilli Ramirez PA-C [address] [place] [address] [facility] [place], [place] [phone] MerissailiaMadonna, EXPERIMENTAL TECHNICIAN [address] [place] [address] 02/23/2025 10:15 AM EST Office Visit [facility] [address] [place] [address] [id number] Lilli Ramirez PA-C [address] [place] [address] [facility], [place], [place] [phone] Nevaeh Romano, PT [address] [place], [place] [id number] documented as of this encounter Visit Diagnoses Not on filedocumented in this encounter Additional Health Concerns Assessment Noted Time PHQ-2 Depression Total Score: 1 06/01/19 10:38 AM EST documented as of this encounter Care Teams Beveler Relationship Specialty Start Date End Date Yesenia Chamorro MD [address] [place] [address] [address] [place] [address] PCP - General Family Medicine 08/18/20 Fili Henson MD [address] [facility] [address] [place] [address] Historical LMR Provider 02/02/17 Monty Caceres MD [address] [place] [address] 202 [place] [address] Historical LMR Provider 02/02/17 Chuck Bustos PA-C [facility] [place] [address] [email or web address] Historical LMR Provider 02/02/17 Bety Gandara FNP [address] [place] [address] [email or web address] Historical LMR Provider 02/02/17 documented as of this encounter Additional Source Comments The information contained in this document represents components of the legal health record. It is not the complete legal health record.[facility]
--- OUTSIDE RECORDS SUMMARY | 2024-12-29 15:50 | XMS_ITS | Encounter Summary ---
Author Organization [facility] Address [facility] [address] [place] [address] Phone Care Team Providers Care Supervisor Plate Pasting Name Role Phone Leigha Vasquez ICT SYSTEMS TEST ENGINEER Unavailable Je Espinal MD Unavailable [phone] Fili Henson MD Unavailable Imani Delcid MD Unavailable Amirah Burns MD Unavailable [phone] Alexx Newsome ICT SYSTEMS TEST ENGINEER Unavailable Subhash Cantu MEDICAL CERTIFICATION SPECIALIST Unavailable Mony Duarte MD Unavailable Monty Caceres MD Unavailable Arline Brown ICT SYSTEMS TEST ENGINEER Unavailable [phone] Chuck Bustos PA-C Unavailable Miguel Torres MD Unavailable [phone] Jefe Perez MD Unavailable [phone] Bety Gandara NURSING STUDENT Unavailable Bautista Saleh MEDICAL CERTIFICATION SPECIALIST Unavailable Precious Rg DO Primary Care Provider [phone] Yesenia Chamorro MD Primary Care Provider Encounter Details Date Type Department Care Team (Late Contact Info) Description 10/07/2018 Procedure Pass [facility] - [address] [address] Social History Tobacco Use Types Packs/Day Years Used Date Smoking Tobacco: Never Smokeless Tobacco: Never Alcohol Use Standard Drinks/Week Comments Yes 0 (1 standard drink = 0.6 oz pur e alcohol) 2/month Comments No Sex and Gender Information Value Date Recorded Sex Assigned at Female 01/02/2018 4:18 PM EDT Legal Sex Female 2:26 PM EDT Gender Identity Female 01/02/2018 4:18 PM EDT Sexual Orientation Straight 05/13/2020 3: 46 PM EST 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 file Not on file documented as of this encounter Plan of Treatment Upcoming Encounters Date Type Department Care Team (Late Contact Info) Description 01/04/2025 1:00 PM EDT Office Visit [facility] [address] [place] [address] Lilli Ramirez PA-C [address] [place] [address] Orthopedics Sports [facility], [place] [address] Jen Summers OT [address] [place] [address] [email or web address] 01/07/2025 2:00 PM EDT Office Visit [address] [address] Lilli Ramirez PA-C [address] [place] [address] Sports Medicine, [place] [address] Nevaeh Romano PT 4 [place] [address] 01/12/2025 10:45 AM EDT Office Visit [address] [address] Lilli Ramirez PA-C [address] [place] [address], [place] [address] Jen Summers, OT 4 [place] [address] [email or web address] 01/12/2025 11:45 AM EDT Office Visit [address] [address] Lilli Ramirez PA-C [address] [place] [address], [place] [address] Nevaeh Romano, PT 4 [place] [address] 01/19/2025 10:00 AM EDT Office Visit [address] [address] Lilli Ramirez PA-C [address] [place] [address], [place] [address] Jen Summers, OT [address] [place] [address] [email or web address] 01/19/2025 11:00 AM EDT Office Visit [address] [address] Lilli Ramirez PA-C [address] [place] [address], [place] [address] Nevaeh Romano, PT 4 [place] [address] 01/26/2025 10:00 AM EDT Office Visit [address] [address] Lilli Ramirez PA-C [address] [place] [address], [place] [address] Jen Summers, OT [address] [place] [address] [email or web address] 01/26/2025 11:00 AM EDT Office Visit [address] [address] Lilli Ramirez PA-C [address] [place] [address], [place] [address] Madonna Rodriguez PTA 4 [place] [address] 02/02/2025 10:00 AM EDT Office Visit [address] [address] Lilil Ramirez PA-C [address] [place] [address], [place] [address] Jen Summers, OT [address] [place] [address] [email or web address] 02/02/2025 11:00 AM EDT Office Visit [address] [address] Lilli Ramirez PA-C [address] [place] [address], [place] [address] Michael Madonna Mcconnell, CASE SPECIALIST 4 [place] [address] 02/09/2025 10:15 AM EDT Office Visit [address] [address] Lilli Ramirez PA-C [address] [place] [address] Sports [facility], [place] [address] Nevaeh Romano, PT 4 [place] [address] 02/16/2025 10:15 AM EST Office Visit [address] [phone] Lilli Ramirez PA-C [address] [place] [address], [place] [address] NavvinnyiliaMadonna, CASE SPECIALIST [address] [place] [address] 02/23/2025 10:15 AM EST Office Visit [address] [phone] Lilli Ramirez PA-C [address] [place] [address], [place], [place] [phone] Nevaeh Romano, PT 4 [place], [place] [phone] documented as of this encounter Visit Diagnoses Not on filedocumented in this encounter Additional Health Concerns Infection Onset Date Last Indicated Resolved Time CoV-Exposed Comment:Recent close contact 02/15/2020 02/15/2020 02/29/2020 1:23 AM EST CoV-Exposed Comment:From COVIDPass 03/20/2021 03/20/2021 04/04/2021 1:23 A M EST CoV-Exposed Comment:Recent close contact documented in the COVID-19 PCR/PRO order 04/10/2021 04/10/2021 04/25/2021 1:[address] CoV-Risk 08/26/2021 09/05/2021 09/16/2021 1:21 AM EDT documented as of this encounter Care Teams Supervisor Plate Pasting Relationship Specialty Start Date End Date Precious Rg DO [address] [place] [address] [email or web address] PCP - General Family Medicine 03/26/18 08/17/20 Yesenia Chamorro MD 15 [facility] 201 [place] [address] PCP - General Family Medicine 08/18/20 Leigha Vasquez NP [address] [place] [address] Historical LMR Provider 02/02/17 Je Espinal MD [address] [place] [address], [address] [place] [address] Historical LMR Provider 02/02/17 0 Fili Henson MD 22 [facility], [address] [place] [address] Historical LMR Provider 02/02/17 Imani Delcid MD [address] [place] [address], [address] [place] [address] [email or web address] Historical LMR Provider 02/02/17 2 Amirah Burns MD [address] [place] [address] [email or web address] Historical LMR Provider 02/02/17 04/21/21 Alexx Newsome, GENE [address] [place] [address] 2[facility] [address] [email or web address] Historical LMR Provider 02/02/17 04/21/21 Subhash Cantu, SERGIO [address] [facility], [address] [place] [address] [email or web address] Historical LMR Provider 02/02/17 04/21/21 Mony Duarte MD 15 [facility], 2nd [place] [address] [email or web address] Historical LMR Provider 02/02/17 Monty Caceres MD [address] [place] [address], [address] [place] [address] [email or web address] Historical LMR Provider 02/02/17 Arline Brown, GENE [address] [place] [address] [place] [address] Historical LMR Provider 02/02/17 Chuck Bustos PA-C [address] [place] [address] Orthopedics & Sports Medicine, [facility] [place] [address] Historical LMR Provider 02/02/17 Miguel Torres MD [address] [place] [address], [address] [place] [address] Historical LMR Provider 02/02/17 2 Jefe Perez MD [facility] [place] [address] Historical LMR Provider 02/02/17 2 Bety Gandara FNP [address] [place] [address] Historical LMR Provider 02/02/17 Bautista Saleh CNP [address] [place] [address], [address] [place] [address] [email or web address] Historical LMR Provider 02/02/17 documented as of this encounter Additional Source Comments The information contained in this document represents components of the legal health record. It is not the complete legal health record.[facility]
--- OUTSIDE RECORDS SUMMARY | 2024-12-29 15:50 | XMS_ITS | Encounter Summary ---
Author Organization [facility] Address [address] [place] [address] Phone Care Team Providers Care Senior Telecommunications Specialist Name Role Phone Fili Henson MD Unavailable Monty Caceres MD Unavailable Chuck Bustos PA-C Unavailable [phone] Bety Gandara Unavailable Yesenia Chamorro MD Primary Care Provider Encounter Details Date Type Department Care Team (Late st Contact Info) Description 07/23/2022 Procedure Pass [facility], [facility] - [address] [address] Social History Tobacco Use Types Packs/Day Years Used Date Smoking Tobacco: Never Smokeless Tobacco: Never Alcohol Use Standard Drinks/Week Comments Yes 0 (1 standard drink = 0.6 oz pur e alcohol) 2/month Child or Family Care Answer Date Record ed Do you have problems with on e of the following making it difficult for you to work, study, or receive health care? No 06/01/2021 Education Answer Date Recorded Are you interested in help w ith more adult education (for example, completing high school, GED, job training, learning the [place] language, technical skills, or developing parenting skills)? No 06/01/2021 Food Answer Date Recorded Within the past [...] basis, and looking for work? 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 Wish to be (Past 1 Month) No 023 7:24 AM EDT Adrianna Garber, DELMER 2. Non-Specific Active Suici doretha Thoughts (Past 1 Month) No 07/23/2022 7:24 AM EDT Adrianna Garber, DELMER 6. Suicidal Behavior (Lifetime) No 3 7:24 AM EDT Adrianna Garber, RN documented as of this encounter Plan of Treatment Upcoming Encounters Date Type Department Care Team (Late st Contact Info) Description 01/04/2025 1:00 PM EDT Office Visit Bautista Joe [address] [address] Lilli Ramirez PA-C [address] [place] [address], [place] [address] Jen Summers, OT [address] [place] [address] [email or web address] 01/07/2025 2:00 PM EDT Office Visit [address] [address] Lilli Ramirez PA-C [address] [place] [address], [place] [address] Nevaeh Romano, PT [address] [place] [address] 01/12/2025 10:45 AM EDT Office Visit [address] [address] Lilli Ramirez PA-C [address] [place] [address], [place] [address] Jen Summers, OT [address] [place] [address] [email or web address] 01/12/2025 11:45 AM EDT Office Visit [address] [address] Lilli Ramirez PA-C [address] [place] [address], [place] [address] Nevaeh Romano, PT [address] [place] [address] 01/19/2025 10:00 AM EDT Office Visit [address] [address] Lilli Ramirez PA-C [address] [place] [address] Sports [facility], [place] [address] Jen Summers, OT [address] [place] [address] [email or web address] 01/19/2025 11:00 AM EDT Office Visit [address] [address] Lilli Ramirez PA-C [address] [place] [address], [place] [address] Nevaeh Romano, PT [address] [place] [address] 01/26/2025 10:00 AM EDT Office Visit [address] [address] Lilli Ramirez PA-C [address] [place] [address], [place] [address] Jen Summers, OT 4 [place] [address] [email or web address] 01/26/2025 11:00 AM EDT Office Visit [address] [phone] Lilli Ramirez PA-C [address] [place] [address], [place] [address] Madonna Rodriguez, BEEF KILLER [address] [place] [address] 02/02/2025 10:00 AM EDT Office Visit [address] [address] Lilli Ramirez PA-C [address] [place], [place] [address]s Sports [facility], [place] [address] Jen Summers OT [address] [place] [address] [email or web address] 02/02/2025 11:00 AM EDT Office Visit [address] [address] Lilli Ramirez PA-C [address] [place] [address], [place] [address] Madonna Rodriguez BEEF KILLER [address] [place] [address] 02/09/2025 10:15 AM EDT Office Visit [address] [address] Lilli Ramirez PA-C [address] [place], [place] [address]s Sports [facility], [place] [address] [email or web address] Nevaeh Romano, PT 4 [place] [address] 02/16/2025 10:15 AM EST Office Visit [address] [phone] Lilli Ramirez PA-C [address] [place] [address] Sports [facility] [place] [address] Madonna Rodriguez PTA 4 [place] [address] 02/23/2025 10:15 AM EST Office Visit [facility] 4 [place], [place] [phone] Lilli Ramirez PA-C [address] [place] [address] Sports [facility], [place], [place] [phone] Nevaeh Romano, PT [address] [place], [place] [phone] documented as of this encounter Visit Diagnoses Not on filedocumented in this encounter Additional Health Concerns Assessment Noted Time PHQ-2 Depression Total Score: 1 06/01/19 22 10:38 AM EST documented as of this encounter Care Teams Senior Telecommunications Specialist Relationship Specialty Start Date End Date Yesenia Chamorro MD [address] [facility] [address] [place] [address] PCP - General Family Medicine 08/18/20 Fili Henson MD [address] [facility] [address] [place] [address] [email or web address] Historical LMR Provider 02/02/17 Monty Caceres MD [address] [place] [address] 202 [place] [address] Historical LMR Provider 02/02/17 Chuck Bustos PA-C [address] [place] [address] Orthopedics Sports [facility], [place] [address] [email or web address] Historical LMR Provider 02/02/17 Bety Gandara FNP [address] [place] [address] [email or web address] Historical LMR Provider 02/02/17 documented as of this encounter Additional Source Comments The information contained in this document represents components of the legal health record. It is not the complete legal health record.[facility]
--- OUTSIDE RECORDS SUMMARY | 2024-12-29 15:50 | XMS_ITS | Encounter Summary ---
Author Organization [facility] Address [facility] [address] [place] [address] Phone Care Team Providers Care Oracle R12 Developer Name Role Phone Fili Henson MD Unavailable Imani Delcid MD Unavailable Amirah Burns MD Unavailable [phone] Alexx Newsome PLOW HOLDER Unavailable Subhash Cantu SHIRT TRIMMER Unavailable [phone] Mony Duarte MD Unavailable Monty Caceres MD Unavailable Arline Brown PLOW HOLDER Unavailable [phone] Chuck Bustos PA-C Unavailable Miguel Torres MD Unavailable [phone] Jefe Perez MD Unavailable Bety Gandara BROACH TROUBLE SHOOTER Unavailable Bautista Saleh SHIRT TRIMMER Unavailable Yesenia Chamorro MD Primary Care Provider Encounter Details Date Type Department Care Team (Late st Contact Info) Description 01/03/2021 Procedure Pass [facility], [address] [address] Social History Tobacco Use Types Packs/Day Years [...] Description 01/04/2025 1:00 PM EDT Office Visit [address] [address] Lilli Ramirez PA-C [address] [place] [address], [place] [address] Jen Summers OT [address] [place] [address] [email or web address] 01/07/2025 2:00 PM EDT Office Visit [address] [address] Lilli Ramirez PA-C [address] [place] [address], [place] [address] Nevaeh Romano, PT [address] [place] [address] 01/12/2025 10:45 AM EDT Office Visit [address] [address] Lilli Ramirez PA-C [address] [place] [address], [place] [address] Justus Summerswilma, OT 4 [place] [address] [email or web address] 01/12/2025 11:45 AM EDT Office Visit [address] [address] Lilli Ramirez PA-C [address] [place], [place] [address]s Sports [facility], [place] [address] Nevaeh Romano, PT 4 [place] [address] 01/19/2025 10:00 AM EDT Office Visit [address] [address] Lilli Ramirez PA-C [address] [place] [address], [place] [address] Jen Summers, OT [address] [place] [address] [email or web address] 01/19/2025 11:00 AM EDT Office Visit [address] [address] Lilli Ramirez PA-C [address] [place] [address], [place], [place] [phone] Nveaeh Romano, PT 4 [place] [address] 01/26/2025 10:00 AM EDT Office Visit [address] [phone] Lilli Ramirez PA-C [address] [place], [place] [address]s Sports [facility], [place] [address] Davidsusanlindy Jen, OT 4 [place] [address] [email or web address] 01/26/2025 11:00 AM EDT Office Visit [address] [address] Lilli Ramirez PA-C [address] [place] [address], [place] [address] Madonna Rodriguez PTA [address] [place] [address] 02/02/2025 10:00 AM EDT Office Visit [address] [address] Lilli Ramirez PA-C [address] [place] [address], [place] [address] Melina Jen, OT 4 [place] [address] [email or web address] 02/02/2025 11:00 AM EDT Office Visit [address] [address] Lilli Ramirez PA-C [address] [place] [address], [place] [address] Madonna Rodriguez PTA 4 [place] [address] 02/09/2025 10:15 AM EDT Office Visit [address] [address] Lilli Ramirez PA-C [address] [place] [address], [place] [address] Nevaeh Romano, PT 4 [place] [address] 02/16/2025 10:15 AM EST Office Visit [address] [phone] Lilli Ramirez PA-C [address] [place] [address], [place], [place] [phone] Madonna Rodriguez PTA 4 [place] [address] 02/23/2025 10:15 AM EST Office Visit [address] [phone] Lilli Ramirez PA-C [address] [place] [address] [phone] Nevaeh Romano, PT 4 [place], [place] [phone] documented as of this encounter Visit Diagnoses Not on filedocumented in this encounter Additional Health Concerns Infection Onset Date Last Indicated Resolved Time CoV-Exposed Comment:From COVIDPass 03/20/2021 03/20/2021 04/04/2021 1:23 A M EST CoV-Exposed Comment:Recent close contact documented in the COVID-19 PCR/PRO order 04/10/2021 04/10/2021 04/25/2021 1:[address] CoV-Risk 08/26/2021 09/05/2021 09/16/2021 1:21 AM EDT documented as of this encounter Care Teams Oracle R12 Developer Relationship Specialty Start Date End Date Yesenia Chamorro MD 15 [facility] [address] [place] [address] PCP - General Family Medicine 08/18/20 Fili Henson MD [address] [place] [address], [address] [place] [address] Historical LMR Provider 02/02/17 Imani Delcid MD [address] [place] [address], [address] [place] [address] Historical LMR Provider 02/02/17 2 Amirah Burns MD [address] [place] [address] [email or web address] Historical LMR Provider 02/02/17 04/21/21 Alexx Newsome, GENE [address] [place] [address] 2_[place] [address] [email or web address] Historical LMR Provider 02/02/17 04/21/21 Subhash Cantu, SERGIO [address] [place] [address], [address] [place] [address] [email or web address] Historical LMR Provider 02/02/17 04/21/21 Mony [place] MD [address] [place] [address], 2nd [place] [address] Historical LMR Provider 02/02/17 Monty Caceres MD [address] [place] [address], [address] [place] [address] Historical LMR Provider 02/02/17 Arline Brown, GENE [address] [place] [address] [place] [address] Historical LMR Provider 02/02/17 Chuck Bustos PA-C [address] [place] [address] Orthopedics & Sports Medicine, [place] [address] Historical LMR Provider 02/02/17 Miguel Torres MD [address] [place] [address], [address] [place] [address] Historical LMR Provider 02/02/17 2 Jefe Perez MD [address] [place] [id number] Historical LMR Provider 02/02/17 2 Bety Gandara FNP [address] [place] [address] Historical LMR Provider 02/02/17 Bautista Saleh CNP [address] [place] [address], [address] [place] [address] Historical LMR Provider 02/02/17 documented as of this encounter Additional Source Comments The information contained in this document represents components of the legal health record. It is not the complete legal health record.[facility]
--- OUTSIDE RECORDS SUMMARY | 2024-12-29 15:50 | XMS_ITS | Encounter Summary ---
Author Organization [facility] Address [facility] [address] [place] [address] Phone Care Team Providers Care Generation Engineering Technologist Name Role Phone Leigha Vasquez RETAIL TIRE SALES MANAGER Unavailable [phone] Je Espinal MD Unavailable [phone] Fili Henson MD Unavailable Imani Delcid MD Unavailable Amirah Burns MD Unavailable [phone] Alexx Newsome RETAIL TIRE SALES MANAGER Unavailable Subhash Cantu UNIVERSITY DEAN Unavailable Mony [place] MD Unavailable Monty Caceres MD Unavailable Arline Brown RETAIL TIRE SALES MANAGER Unavailable [phone] Chuck Bustos PA-C Unavailable Miguel Torres MD Unavailable [phone] Jefe Perez MD Unavailable [phone] Bety Gandara AQUATICS INSTRUCTOR Unavailable Bautista Saleh UNIVERSITY DEAN Unavailable Precious Rg DO Primary Care Provider [phone] Yesenia Chamorro MD Primary Care Provider Encounter Details Date Type Department Care Team (Late Contact Info) Description 10/07/2018 Procedure Pass [facility], [facility] - [address] [address] Social History Tobacco Use Types Packs/Day Years [...] Description 01/04/2025 1:00 PM EDT Office Visit [facility] [address] [place] [address] Lilli Ramirez PA-C [address] [place] [address] Orthopedics Sports Medicine, [place] [address] Jen Summers OT [address] [place] [address] [email or web address] 01/07/2025 2:00 PM EDT Office Visit [address] [address] Lilli Ramirez PA-C [address] [place] [address] Sports Medicine, [place] [address] Nevaeh Romano PT 4 [place] [address] 01/12/2025 10:45 AM EDT Office Visit [address] [address] Lilli Ramirez PA-C [address] [place] [address], [place] [address] Jen Summers, OT 4 [place] [address] [email or web address] 01/12/2025 11:45 AM EDT Office Visit [address] [address] Lilli Ramirez PA-C [address] [place] [address], [place] [address] Nevaeh Romano, PT 4 [place] [address] 01/19/2025 10:00 AM EDT Office Visit [address] [address] Lilli Ramirez PA-C [address] [place] [address], [place] [address] Jen Summers, OT 4 [place] [address] [email or web address] 01/19/2025 11:00 AM EDT Office Visit [address] [address] Lilli Ramirez PA-C [address] [place] [address], [place] [address] Nevaeh Romano, PT 4 [place] [address] 01/26/2025 10:00 AM EDT Office Visit [address] [address] Lilli Ramirez PA-C [address] [place] [address], [place] [address] Jen Summers, OT 4 [place] [address] [email or web address] 01/26/2025 11:00 AM EDT Office Visit [address] [address] Lilli Ramirez PA-C [address] [place] [address], [place] [address] Madonna Rodriguez PTA 4 [place] [address] 02/02/2025 10:00 AM EDT Office Visit [address] [address] Lilli Ramirez PA-C [address] [place] [address], [place] [address] Jen Summers, OT [address] [place] [address] [email or web address] 02/02/2025 11:00 AM EDT Office Visit [address] [address] Lilli Ramirez PA-C [address] [place] [address], [place] [address] Michael Madonna Mcconnell, MANAGER CARE 4 [place] [address] 02/09/2025 10:15 AM EDT Office Visit [address] [address] Lilli Ramirez PA-C [address] [place] [address] Sports [facility], [place] [address] Nevaeh Romano, PT 4 [place] [address] 02/16/2025 10:15 AM EST Office Visit [address] [phone] Lilli Ramirez PA-C [address] [place] [address], [place] [address] NavvinnyiliaMadonna, MANAGER CARE [address] [place] [address] 02/23/2025 10:15 AM EST Office Visit [address] [phone] Lilli Ramirez PA-C [address] [place] [address], [place], [place] [phone] Nevaeh Romano, PT 4 [place], [place] [phone] documented as of this encounter Visit Diagnoses [...] documented as of this encounter Care Teams Generation Engineering Technologist Relationship Specialty Start Date End Date Precious Rg DO [address] [place] [address] [email or web address] PCP - General Family Medicine 03/26/18 08/17/20 Yesenia Chamorro MD 15 [facility] 201 [place] [address] PCP - General Family Medicine 08/18/20 Leigha Vasquez NP [address] [place] [address] Historical LMR Provider 02/02/17 Je Espinal MD [address] [place] [address], [address] [place] [address] Historical LMR Provider 02/02/17 0 Fili Henson MD 22 [facility], [address] [place] [address] Historical LMR Provider 02/02/17 Imani Delcid MD [address] [place] [address], [address] [place] [address] [email or web address] Historical LMR Provider 02/02/17 2 Amirah Burns MD [address] [place] [address] [email or web address] Historical LMR Provider 02/02/17 04/21/21 Alexx Newsome, GENE [address] [place] [address] 2_[place] [address] [email or web address] Historical LMR Provider 02/02/17 04/21/21 Subhash Cantu, SERGIO [address] [facility], [address] [place] [address] [email or web address] Historical LMR Provider 02/02/17 04/21/21 Mony [place] MD 15 [facility], 2nd [place] [address] [email or web address] Historical LMR Provider 02/02/17 Monty Caceres MD [address] [place] [address], [address] [place] [address] [email or web address] Historical LMR Provider 02/02/17 Arline Brown, GENE [address] [place] [address] [place] [address] Historical LMR Provider 02/02/17 Chuck Bustos PA-C [address] [place] [address] Orthopedics & Sports Medicine, [facility] [place] [address] Historical LMR Provider 02/02/17 Miguel Torres MD [address] [place] [address], [address] [place] [address] Historical LMR Provider 02/02/17 2 Jefe Perez MD [facility] [place] [address] Historical LMR Provider 02/02/17 2 Bety Gandara FNP [address] [place] [address] Historical LMR Provider 02/02/17 Bautista Saleh CNP [address] [place] [address], [address] [place] [address] [email or web address] Historical LMR Provider 02/02/17 documented as of this encounter Additional Source Comments The information contained in this document represents components of the legal health record. It is not the complete legal health record.[facility]
--- OUTSIDE RECORDS SUMMARY | 2024-12-29 15:50 | XMS_ITS | Encounter Summary ---
Author Organization [facility] Address [facility] [employer] [place] [address] [place] [address] Phone Care Team Providers Care Bag Cutter Name Role Phone Fili Henson MD Unavailable Monty Caceres MD Unavailable Chuck Bustos PA-C Unavailable [phone] Bety Gandara Unavailable Yesenia Chamorro MD Primary Care Provider Encounter Details Date Type Department Care Team (Late st Contact Info) Description 12/07/2024 Prep for Surgery [facility] Orthopedics & Sports Medicine [address] [place] [address] Sara Herndon MD [address] [place] [address] Orthopedics & Sports Medicine, [facility]. [place], [place] [phone] [email or web address] Social History Tobacco Use Types Packs/Day Years [...] Description 01/04/2025 1:00 PM EDT Office Visit [address] [address] Lilli Ramirez PA-C [address] [place], [place] [address]s Sports [facility], [place] [address] Jen Summers OT 4 [place] [address] [email or web address] 01/07/2025 2:00 PM EDT Office Visit [address] [address] Lilli Ramirez PA-C [address] [place] [address], [place] [address] Nevaeh Romano, PT 4 [place] [address] 01/12/2025 10:45 AM EDT Office Visit [address] [address] Llili Ramirez PA-C [address] [place] [address], [place] [address] Jen Summers, OT [address] [place] [address] [email or web address] 01/12/2025 11:45 AM EDT Office Visit [address] [phone] Lilli Ramirez PA-C 4 [facility] Sports [facility], [place] [address] Nevaeh Romano, PT 4 [place] [address] 01/19/2025 10:00 AM EDT Office Visit [address] [address] Lilli Ramirez PA-C [address] [place] [address], [place] [address] Jen Summers, OT 4 [place] [address] [email or web address] 01/19/2025 11:00 AM EDT Office Visit [address] [address] Lilli Ramirez PA-C [address] [place] [address], [place] [address] Nevaeh Romano, PT 4 [place] [address] 01/26/2025 10:00 AM EDT Office Visit [address] [address] Lilli Ramirez PA-C [address] [place] [address], [place] [address] Jen Summers, OT 4 [place] [address] [email or web address] 01/26/2025 11:00 AM EDT Office Visit [address] [phone] Lilli Ramirez PA-C [address] [place] [address], [place] [address] Madonna Rodriguez BENCH WORKER HELPER [address] [place] [address] 02/02/2025 10:00 AM EDT Office Visit [address] [address] Lilli Ramirez PA-C [address] [place] [address], [place] [address] Jen Summers OT [address] [place] [address] [email or web address] 02/02/2025 11:00 AM EDT Office Visit [address] [address] Lilli Ramirez PA-C [address] [place] [address] Madonna Rodriguez BENCH WORKER HELPER [address] [place] [address] 02/09/2025 10:15 AM EDT Office Visit [address] [phone] Lilli Ramirez PA-C [address] [place] [address], [place] [address] Nevaeh Romano, PT 4 [place] [address] 02/16/2025 10:15 AM EST Office Visit [address] [phone] Lilli Ramirez PA-C [address] [place] [address], [place] [address] Madonna Rodriguez, BENCH WORKER HELPER 4 [place], [place] [phone] 02/23/2025 10:15 AM EST Office Visit [address] [id number] Lilli Ramirez PA-C [address] [place] [address], [place], [place] [phone] Nevaeh Romano, PT 4 [place] [address] documented as of this encounter Visit Diagnoses Not on filedocumented in this encounter Additional Health Concerns Assessment Noted Time PHQ-2 Depression Total Score: 1 06/01/19 22 10:38 AM EST documented as of this encounter Care Teams Bag Cutter Relationship Specialty Start Date End Date Yesenia Chamorro MD 15 [facility] [address] [place] [address] PCP - General Family Medicine 08/18/20 Fili Henson MD 22 [facility], [address] [place] [address] Historical LMR Provider 02/02/17 Monty Caceres MD [address] [place] [address], [place] [address] [email or web address] Historical LMR Provider 02/02/17 Chuck Bustos PA-C 4 [facility] Orthopedics & Sports Medicine, [place] [address] [email or web address] Historical LMR Provider 02/02/17 Bety Gandara FNP [address] [place] [address] [email or web address] Historical LMR Provider 02/02/17 documented as of this encounter Additional Source Comments The information contained in this document represents components of the legal health record. It is not the complete legal health record.[facility]
--- OUTSIDE RECORDS SUMMARY | 2024-12-29 15:50 | XMS_ITS | Encounter Summary ---
Author Organization [facility] Address Critical access hospital [facility] [address] [place] [address] Phone Care Team Providers Care Policy Officer Name Role Phone Leigha Vasquez CERTIFIED MEDICAL ASST Unavailable [phone] Je Espinal MD Unavailable [phone] Fili Henson MD Unavailable Imani Delcid MD Unavailable Amirah Burns MD Unavailable [phone] Alexx Newsome CERTIFIED MEDICAL ASST Unavailable Subhash Cantu CANDLE MAKING SUPERVISOR Unavailable Mony Duarte MD Unavailable Monty Caceres MD Unavailable Arline Brown CERTIFIED MEDICAL ASST Unavailable [phone] Chuck Bustos PA-C Unavailable Miguel Torres MD Unavailable [phone] Jefe Perez MD Unavailable [phone] Bety Gnadara HOME HEALTH ASSISTANT Unavailable Bautista Slaeh CANDLE MAKING SUPERVISOR Unavailable Precious Rg DO Primary Care Provider [phone] Yesenia Chamorro MD Primary Care Provider Encounter Details Date Type Department Care Team (Late Contact Info) Description 10/07/2018 Procedure Pass OR Admitting Dept - Virtual Department [address] [place] [address] Social History Tobacco Use Types Packs/Day Years [...] Upcoming Encounters Date Type Department Care Team ([facility] Contact Info) Description 01/04/2025 1:00 PM EDT Office Visit [facility] Services [address] [place] [address] Lilli Ramirez PA-C [address] [place] [address] [facility], [place] [address] Jen Summers OT [address] [place] [address] [email or web address] 01/07/2025 2:00 PM EDT Office Visit [address] [address] Lilli Ramirez PA-C [address] [place] [address], [place], [place] [phone] Nevaeh Romano PT [address] [place] [address] 01/12/2025 10:45 AM EDT Office Visit [address] [address] Lilli Ramirez PA-C [address] [place] [address], [place] [address] Jen Summers, OT [address] [place] [address] [email or web address] 01/12/2025 11:45 AM EDT Office Visit [address] [address] Lilli Ramirez PA-C [address] [place] [address], [place] [address] Nevaeh Romano, PT [address] [place] [address] 01/19/2025 10:00 AM EDT Office Visit [address] [address] Lilli Ramirez PA-C [address] [place] [address], [place] [address] Jen Summers, OT [address] [place] [address] [email or web address] 01/19/2025 11:00 AM EDT Office Visit [address] [address] Lilli Ramirez PA-C [address] [place] [address], [place] [address] Nevaeh Romano, PT [address] [place] [address] 01/26/2025 10:00 AM EDT Office Visit [address] [address] Lilli Ramirez PA-C [address] [place] [address], [place] [address] Jen Summers, OT [address] [place] [address] [email or web address] 01/26/2025 11:00 AM EDT Office Visit [address] [address] Lilli Ramirez PA-C [address] [place] [address], [place] [address] Madonna Rodriguez PTA [address] [place] [address] 02/02/2025 10:00 AM EDT Office Visit [address] [address] Lilli Ramirez PA-C [address] [place] [address], [place] [address] Jen Summers, OT [address] [place] [address] [email or web address] 02/02/2025 11:00 AM EDT Office Visit [address] [address] Lilli Ramirez PA-C [address] [place] [address], [place] [address] NavvinnyiliaMadonna Jayesh, RAILCAR SWITCHMAN [address] [place] [address] 02/09/2025 10:15 AM EDT Office Visit [address] [address] Lilli Ramirez PA-C [address] [place] [address] [facility], [place] [address] Nevaeh Romano, PT [address] [place] [address] 02/16/2025 10:15 AM EST Office Visit [address] [address] Llili Ramirez PA-C [address] [place] [address], [place] [address] NavvinnyiliaMadonna, RAILCAR SWITCHMAN [address] [place] [address] 02/23/2025 10:15 AM EST Office Visit [address] [phone] Lilli Ramirez PA-C [address] [place] [address], [place], [place] [phone] Nevaeh Romano, PT [address] [place], [place] [phone] documented as of this encounter Visit Diagnoses [...] documented as of this encounter Care Teams Policy Officer Relationship Specialty Start Date End Date Precious Rg DO [address] [place] [address] [email or web address] PCP - General Family Medicine 03/26/18 08/17/20 Yesenia Chamorro MD [address] [place] [address] [address] [place] [address] PCP - General Family Medicine 08/18/20 Leigha Vasquez NP [address] [place] [address] Historical LMR Provider 02/02/17 Je Espinal MD [address] [place] [address], [address] [place] [address] Historical LMR Provider 02/02/17 0 Fili Henson MD [address] [facility], [address] [place] [address] Historical LMR Provider 02/02/17 Imani Delcid MD [address] [place] [address], [address] [place] [address] Historical LMR Provider 02/02/17 2 Amirah Burns MD [address] [place] [address] [email or web address] Historical LMR Provider 02/02/17 04/21/21 Alexx Newsome, GENE [address] [place] [address] 2_[place] [address] [email or web address] Historical LMR Provider 02/02/17 04/21/21 Subhash Cantu, SERGIO [address] [facility], [address] [place] [address] [email or web address] Historical LMR Provider 02/02/17 04/21/21 Mony Duarte MD [address] [facility], 2nd [place] [address] [email or web address] Historical LMR Provider 02/02/17 Monty Caceres MD [address] [place] [address], [address] [place] [address] [email or web address] Historical LMR Provider 02/02/17 Arline Brown, GENE [address] [place] [address] [place] [address] Historical LMR Provider 02/02/17 Chuck Bustos PA-C [address] [place] [address] Orthopedics & Sports Medicine, [facility] [place] [address] Historical LMR Provider 02/02/17 Miguel Torres MD [address] [place] [address], [address] [place] [address] Historical LMR Provider 02/02/17 2 Jefe Perez MD [address] [place] [id number] Historical LMR Provider 02/02/17 2 Bety Gandara FNP [address] [place] [address] Historical LMR Provider 02/02/17 Bautista Saleh CNP [address] [place] [address], [address] [place] [address] [email or web address] Historical LMR Provider 02/02/17 documented as of this encounter Additional Source Comments The information contained in this document represents components of the legal health record. It is not the complete legal health record.[facility]
--- OUTSIDE RECORDS SUMMARY | 2024-12-29 15:50 | XMS_ITS | Encounter Summary ---
Author Organization [facility] Address [address] [facility] [address] [place] [address] Phone Care Team Providers Care Associate Financial Analyst Name Role Phone Fili Henson MD Unavailable Monty Caceres MD Unavailable Chuck Bustos PA-C Unavailable Bety Gandara Unavailable Yesenia Chamorro MD Primary Care Provider Encounter Details Date Type Department Care Team (Late st Contact Info) Description 12/08/2024 Procedure Pass [facility], [facility] Scan - [address] [address] Social History Tobacco Use Types Packs/Day Years [...] Description 01/04/2025 1:00 PM EDT Office Visit [address] [phone] Lilli Ramirez PA-C [address] [place] [address] Sports [facility], [place] [address] Jen Summers, OT [address] [place] [address] [email or web address] 01/07/2025 2:00 PM EDT Office Visit [address] [phone] Lilli Ramirez PA-C [address] [place] [address], [place] [address] Nevaeh Romano, PT [address] [place] [address] 01/12/2025 10:45 AM EDT Office Visit [address] [phone] Lilli Ramirez PA-C [address] [place] [address], [place], [place] [phone] Jen Summers, OT [address] [place] [address] [email or web address] 01/12/2025 11:45 AM EDT Office Visit [address] [phone] Lilli Ramirez PA-C [address] [place] [address], [place], [place] [phone] Nevaeh Romano, PT [address] [place] [address] 01/19/2025 10:00 AM EDT Office Visit [address] [address] Lilli Ramirez PA-C [address] [place], [place] [address]s Sports [facility], [place] [address] Jen Summers, OT [address] [place] [address] [email or web address] 01/19/2025 11:00 AM EDT Office Visit [address] [address] Lilli Ramirez PA-C [address] [place] [address], [place] [address] Nevaeh Romano, PT [address] [place] [address] 01/26/2025 10:00 AM EDT Office Visit [address] [address] Lilli Ramirez PA-C [address] [place] [address], [place] [address] Jen Summers, OT [address] [place] [address] [email or web address] 01/26/2025 11:00 AM EDT Office Visit [address] [address] Lilli Ramirez PA-C [address] [place] [address], [place] [address] NavvinnyiliaMadonna, BID CLERK [address] [place] [address] 02/02/2025 10:00 AM EDT Office Visit [address] [address] Lilli Ramirez PA-C [address] [place], [place] [address]s Sports [facility], [place] [address] Jen Summers OT [address] [place] [address] [phone] [email or web address] 02/02/2025 11:00 AM EDT Office Visit [address] [phone] Lilli Ramirez PA-C [address] [place] [address], [place], [place] [phone] Madonna Rodriguez, BID CLERK [address] [place] [address] 02/09/2025 10:15 AM EDT Office Visit [address] [phone] Lilli Ramirez PA-C [address] [place] [address] Sports [facility] [place], [place] [phone] Nevaeh Romano, PT [address] [place], [place] [phone] 02/16/2025 10:15 AM EST Office Visit [address] [address] Lilli Ramirez PA-C [address] [place] [address] [facility], [place], [place] [phone] Madonna Rodriguez, BID CLERK [address] [place] [address] 02/23/2025 10:15 AM EST Office Visit [facility] Services [address] [place] [address] [phone] Lilli Ramirez PA-C [address] [place] [address] [facility] Sports [facility], [place], [place] [phone] Nevaeh Romano, PT [address] [place], [place] [phone] documented as of this encounter Visit Diagnoses Not on filedocumented in this encounter Additional Health Concerns Assessment Noted Time PHQ-2 Depression Total Score: 1 06/01/19 10:38 AM EST documented as of this encounter Care Teams Associate Financial Analyst Relationship Specialty Start Date End Date Yesenia Chamorro MD [address] [place] [address] Ivan. [address] [place] [address] PCP - General Family Medicine 08/18/20 Fili Henson MD 22 [facility], [address] [place] [address] Historical LMR Provider 02/02/17 Monty Caceres MD [address] [place] [address] 202 [place] [address] Historical LMR Provider 02/02/17 Chuck Bustos PA-C 4 [facility] Orthopedics & Sports Medicine, [place] [address] [email or web address] Historical LMR Provider 02/02/17 Bety Gandara FNP [address] [place] [address] [email or web address] Historical LMR Provider 02/02/17 documented as of this encounter Additional Source Comments The information contained in this document represents components of the legal health record. It is not the complete legal health record.[facility]
--- OUTSIDE RECORDS SUMMARY | 2024-12-29 15:50 | XMS_ITS | Encounter Summary ---
Author Organization [facility] Address [facility] [address] [place] [address] Phone Care Team Providers Care Street Inspector Name Role Phone Leigha Vasquez CURATOR Unavailable Je Espinal MD Unavailable [phone] Fili Henson MD Unavailable Imani Delcid MD Unavailable Amirah Burns MD Unavailable [phone] Alexx Newsome CURATOR Unavailable Subhash Cantu GEOLOGY SCIENTIST Unavailable Mony Duarte MD Unavailable Monty Caceres MD Unavailable Arline Brown CURATOR Unavailable [phone] Chuck Bustos PA-C Unavailable Miguel Torres MD Unavailable [phone] Jefe Perez MD Unavailable [phone] Bety Gandara TALENT RECRUITER Unavailable Bautista Saleh GEOLOGY SCIENTIST Unavailable Precious Rg DO Primary Care Provider [phone] Yesenia Chamorro MD Primary Care Provider [phone] Encounter Details Date Type Department Care Team (Late Contact Info) Description 10/07/2018 Procedure Pass [facility], [facility] - [address] [address] Social History Tobacco Use Types Packs/Day Years [...] Description 01/04/2025 1:00 PM EDT Office Visit [facility] Services [address] [place] [address] Lilli Ramirez PA-C [address] [place] [address] Orthopedics Sports Medicine, [place] [address] Jen Summers OT [address] [place] [address] [email or web address] 01/07/2025 2:00 PM EDT Office Visit [address] [address] Lilli Ramirez PA-C [address] [place] [address] Sports Medicine, [place] [address] Nevaeh Romano PT 4 [place] [address] 01/12/2025 10:45 AM EDT Office Visit [address] [address] Lilli Ramirez PA-C [address] [place] [address], [place] [address] Jen Summers, OT [address] [place] [address] [email or web address] 01/12/2025 11:45 AM EDT Office Visit [address] [address] Lilli Ramirez PA-C [address] [place] [address], [place] [address] Nevaeh Romano, PT 4 [place] [address] 01/19/2025 10:00 AM EDT Office Visit [address] [address] Lilli Ramirez PA-C [address] [place] [address], [place] [address] Jen Summers, OT [address] [place] [address] [email or web address] 01/19/2025 11:00 AM EDT Office Visit [address] [address] Lilli Ramirez PA-C [address] [place] [address], [place] [address] Nevaeh Romano, PT [address] [place] [address] 01/26/2025 10:00 AM EDT Office Visit [address] [address] Lilli Ramirez PA-C [address] [place] [address], [place] [address] Jen Summers, OT [address] [place] [address] [email or web address] 01/26/2025 11:00 AM EDT Office Visit [address] [address] Lilli Ramirez PA-C [address] [place] [address], [place] [address] Madonna Rodriguez PTA 4 [place] [address] 02/02/2025 10:00 AM EDT Office Visit [address] [address] Lilli Ramirez PA-C [address] [place] [address], [place] [address] Jen Summers, OT [address] [place] [address] [email or web address] 02/02/2025 11:00 AM EDT Office Visit [address] [address] Lilli Ramirez PA-C [address] [place] [address], [place] [address] [email or web address] Michael Madonna Mcconnell, TIME CHECKER [address] [place] [address] [email or web address] 02/09/2025 10:15 AM EDT Office Visit [address] [address] Lilli Ramirez PA-C [address] [place] [address] [facility], [place] [address] [email or web address] Nevaeh Romano, PT 4 [place] [address] [email or web address] 02/16/2025 10:15 AM EST Office Visit [address] [phone] Lilli Ramirez PA-C [address] [place] [address], [place] [address] [email or web address] NavvinnyiliaMadonna, TIME CHECKER [address] [place] [address] [email or web address] 02/23/2025 10:15 AM EST Office Visit [address] [phone] Lilli Ramirez PA-C [address] [place] [address], [place], [place] [phone] [email or web address] Nevaeh Romano, PT [address] [place], [place] [phone] [email or web address] documented as of this encounter Visit Diagnoses [...] documented as of this encounter Care Teams Street Inspector Relationship Specialty Start Date End Date Precious Rg DO [address] [place] [address] [email or web address] PCP - General Family Medicine 03/26/18 08/17/20 Yesenia Chamorro MD 15 [facility] 201 [place] [address] PCP - General Family Medicine 08/18/20 Leigha Vasquez NP [address] [place] [address] Historical LMR Provider 02/02/17 Je Espinal MD [address] [place] [address], [address] [place] [address] Historical LMR Provider 02/02/17 0 Fili Henson MD [address] [facility], [address] [place] [address] Historical LMR Provider 02/02/17 Imani Delcid MD [address] [place] [address], [address] [place] [address] [email or web address] Historical LMR Provider 02/02/17 2 Amirah Burns MD [address] [place] [address] [email or web address] Historical LMR Provider 02/02/17 04/21/21 Alexx Newsome, GENE [address] [place] [address] 2_[place] [address] [email or web address] Historical LMR Provider 02/02/17 04/21/21 Subhash Cantu, SERGIO [address] [facility], [address] [place] [address] [email or web address] Historical LMR Provider 02/02/17 04/21/21 Mony Duarte MD [address] [facility], 2nd [place] [address] [email or web address] Historical LMR Provider 02/02/17 Monty Caceres MD [address] [place] [address], [address] [place] [address] [email or web address] Historical LMR Provider 02/02/17 Arline Brown, GENE [address] [place] [address] [place] [address] Historical LMR Provider 02/02/17 Chuck Bustos PA-C [address] [place] [address] Orthopedics & Sports Medicine, [facility] [place] [address] Historical LMR Provider 02/02/17 Miguel Torres MD [address] [place] [address], [address] [place] [address] Historical LMR Provider 02/02/17 2 Jefe Perez MD [facility]3 [place] [address] Historical LMR Provider 02/02/17 2 Bety Gandara FNP [address] [place] [address] Historical LMR Provider 02/02/17 Bautista Saleh CNP [address] [place] [address], [address] [place] [address] [email or web address] Historical LMR Provider 02/02/17 documented as of this encounter Additional Source Comments The information contained in this document represents components of the legal health record. It is not the complete legal health record.[facility]
== END 2024-12-29 12:50 | disposition home or self-care (01) ==
LOC: HO.HSM 12:22
PROVIDERS: PCP Internal Medicine; Visit Provider Psychiatry & Neurology Neurology
DX: G43.909 Migraine, unspecified, not intractable, without status migrainosus (principal)
CPT/HCPCS: 99214

== ENCOUNTER 2025-02-02 12:24 | Outpatient (AMB) | payer OTHER, SELFPAY ==
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
== END 2025-02-02 13:28 | disposition home or self-care (01) ==
LOC: HO.HSM 12:25
PROVIDERS: PCP Internal Medicine; Visit Provider Psychiatry & Neurology Neurology
DX: G43.909 Migraine, unspecified, not intractable, without status migrainosus (principal)
CPT/HCPCS: 64615

== ENCOUNTER → 2025-02-02 12:24 | Outpatient (BNVA) | payer OTHER, SELFPAY | PROVIDERS: PCP Internal Medicine; Visit Provider Psychiatry & Neurology Neurology | DX: G43.709 Chronic migraine without aura, not intractable, without status migrainosus (principal) | CPT/HCPCS: 64615; J0585 ==

== ENCOUNTER 2025-03-01 09:59 | Outpatient (AMB) | payer OTHER, SELFPAY ==
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
== END 2025-03-01 10:22 | disposition home or self-care (01) ==
LOC: HO.HSM 10:00
PROVIDERS: PCP Internal Medicine; Visit Provider Psychiatry & Neurology Neurology
DX: G43.909 Migraine, unspecified, not intractable, without status migrainosus (principal)
CPT/HCPCS: 99214